=== PATIENT | male | born 1945 | race Caucasian/White ===

== ENCOUNTER 2021-06-06 10:30 | Outpatient (CLI) | payer MEDICARE, SELFPAY ==
--- NOTE | ~2021-06-06 | XR_ITS ---
XR knee RT 3V DATE: 06/06/2021 10:54 INDICATION: Right lateral knee pain for 2 months TECHNIQUE: [place] and weightbearing AP and lateral views COMPARISON: None FINDINGS: There is mild periarticular spurring of the patella. No fracture or dislocation or joint effusion. Medial and lateral compartment joint spaces are well preserved. There is superior pole patellar enthesopathy. There is severe arterial calcification of the femoral and popliteal and trifurcation arteries. 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
== END 2021-06-06 10:31 | disposition home or self-care (01) ==
LOC: ANHIMG 10:39
PROVIDERS: PCP Physician Assistant; Visit Provider Physician Assistant
DX: M17.11 Unilateral primary osteoarthritis, right knee (principal)
CPT/HCPCS: 73562

== ENCOUNTER 2021-06-18 06:36 | Outpatient (CLI) | payer MEDICARE, SELFPAY ==
--- NOTE | ~2021-06-18 | XR_ITS ---
EXAMINATION: XR lumbar spine 2-3V DATE: 06/18/2021 07:07 INDICATION: Low back pain. TECHNIQUE: 3 views of lumbar spine were obtained. COMPARISON: None. FINDINGS: There is 3 mm retrolisthesis of L2 on L3 and 3 mm anterolisthesis of L4 on L5. Vertebral evelio dy heights are normal. There is mildly decreased disc height at L2-L3 and L4-L5 and moderately decrea sed disc height at L5-S1. There is multilevel facet joint osteoarthritis, severe bilaterally at L4-L5 and L5-S1. IMPRESSION: 1. Moderate lumbar spondylosis. Reviewed, dictated and finalized at location A.
== END 2021-06-18 06:37 | disposition home or self-care (01) ==
PROVIDERS: PCP Physician Assistant; Visit Provider Physician Assistant
DX: M47.896 Other spondylosis, lumbar region (principal)
CPT/HCPCS: 72100

== ENCOUNTER 2021-06-26 08:07 | Outpatient (CLI) | payer MEDICARE, SELFPAY ==
--- NOTE | ~2021-06-26 | US_ITS ---
EXAMINATION: US art doppler w press DAVID DUNN DATE: 06/26/2021 09:45 INDICATION: Peripheral vascular disease. TECHNIQUE: Segmental pressures and plethysmographic and Doppler waveforms of the brachial and lower e xtremity arteries were obtained. COMPARISON: None. FINDINGS: Right and left brachial artery pressures of 131 mm Hg and 149 mm Hg, respectively, are concordant (no rmal difference <= 30 mmHg). The right high-thigh pressure index is 1.17 (normal > 1.2). The right ankle-brachial index (ALLEY) is 1 .19 (normal >= 0.9-1.0). The right great toe-brachial index (TBI) is 0.81 (normal >= 0.65). Arterial Doppler waveforms are biphasic from common femoral artery to the ankle. The left high-thigh pressure index is 1.13. The left ALLEY is 1.19. The left TBI is 0.70. Arterial Dopp ler waveforms are biphasic from common femoral artery to the ankle. IMPRESSION: 1. No significant arterial occlusive disease. Reviewed, dictated and finalized at location A.
== END 2021-06-26 08:08 | disposition home or self-care (01) ==
PROVIDERS: PCP Physician Assistant; Visit Provider Physician Assistant
DX: I73.9 Peripheral vascular disease, unspecified (principal)
CPT/HCPCS: 93923

== ENCOUNTER 2024-08-29 08:16 | Emergency (ER) | payer MEDICARE, SELFPAY ==
--- NOTE | ~2024-08-29 | XR_ITS ---
XR knee RT min 4V Ordering provider: Tanya Quiñonez PA-C History: . knee pain/swelling . Comparison: June 06, 2021 FINDINGS: BONES: No acute fracture or dislocation. JOINT SPACES: Slight narrowing of the lateral compartment.. Marginal osteophytes in the patella. SOFT TISSUES: Atherosclerotic changes. Minimal fluid in the suprapatellar bursa IMPRESSION: No acute osseous abnormality right knee. Mild osteoarthritic changes Reviewed, dictated and finalized at location A.
--- OUTSIDE RECORDS SUMMARY | 2024-08-29 08:24 | XMS_ITS | Data Portability ---
[facility], [email or web address] Address [address] [place] [address] Care Team Providers Care Car Packer Name Role Phone RENETTA APODACA Primary Care Provider Assessment Encounter Date Assessment Date Assessment LastModified by Organization Details LastModified Time 10/30/2019 10/30/2019 Patient with darío e recent right flank pain. A few days ago it resolved. We will just watch. He received an injection for his hand which has helped greatly. Laboratory is reviewed. Lipids glucose slightly high. Counseled on diet. No other major changes or findings. Medications and chart reviewed. ///Documentation is focused on what has changed since previous visits or on pertinent items that have not changed. Previous information is reviewed and updated. No major changes in ROS or PE otherwise. (CMS update 2019). This was created with voice recognition software. The [employer] speech recognition engine boasts accuracy up to 99%. Therefore, 1 out of 100 words can be expected to be erroneous. Human editors are not made available at this healthcare institution. If you spot a routine substitution or missed registration error that warrants correction, please contact this office. A reasonable attempt was made to correct any misrepresented words, phrases, statements or numbers. ///////////////// ///////////////// ///////////////// ////// Follow-up 6 months Virtual instructions Not available 10/30/2019 16:16:51 05/08/2020 05/08/2020 Here for follow-up. First of all lab is reviewed. Few points elevated of cholesterol triglycerides and glucose. Having no clinical symptoms of diabetes. At times will have some hesitancy at night but wishes no treatment for this right now. Also has some reflux and wishes to try some ipni-tws-xaveivq medication. ///Documentation is focused on what has changed since previous visits or on pertinent items that have not changed. Previous information is reviewed and updated and ordered closed. No major changes in ROS or PE otherwise. ([facility] update 2019). This was created with voice recognition software. The [employer] speech recognition engine boasts accuracy up to 99%. Therefore, 1 out of 100 words can be expected to be erroneous. Human editors are not made available at this healthcare institution. If you spot a routine substitution or missed registration error that warrants correction, please contact this office. A reasonable attempt was made to correct any misrepresented words, phrases, statements or numbers. Abnormals that are created by the electronic medical record robot are addressed. ///////////////// ///////////////// ///////////////// ////// Whnw-hvi-uggpzur famotidine for reflux 6 months: CBC metabolic lipids TSH vitamin D B12 CLOSE ALL previous laboratory and imaging studies. Follow-up after laboratory Not available 05/08/2020 17:09:45 12/11/2020 12/11/2020 Lots of things t o address today. Has some paresthesias in the right shoulder usually happens with position or time of day. No findings on exam. Laboratories reviewed in detail. Discussed hyperglycemia and diabetes. Lipids are borderline. Tolerating statin. Hypertension borderline. No symptoms of this. No edema or JVD. patient ordered to have at least a yearly eye exam. Diet and exercise have been recommended and discussed. ADA website recommended. Chart reviewed. Patient also ordered to check feet several times a week. Patient informed that periodic lab including A1c's will be necessary. Patient denies any renal changes. Glucose logs discussed. Foot exam negative. Internal glucose survey forABFM // __TIME for this visit took greater than 32 minutes. Chart was reviewed prior to seeing patient. Medication management took place. Previous lab available was reviewed. Time was taken to discuss lipids, types of cholesterol, ratios etc. Discussed the actions of exercise diet medications. We reviewed the types of monitoring of various medications. We have talked about their associations with other deadly diseases such as heart disease hypertension diabetes vascular problems, obesity etc. Hypertension is discussed. Goal guidelines are 130/80 and below. Medications and history discussed. Blood pressure will change throughout the day based on patient's activities. Risk factors are discussed. What the numbers mean has been discussed also. Patient is told that the higher the blood pressure levels the more the risk for other health problems such as heart disease heart attack and stroke along with kidney disease. Lifestyle changes such as exercise smoking cessation healthy diet healthy weight and managing stress are reviewed. Learning home blood pressure cuff use is encouraged. ///Documentation is focused on what has changed since previous visits or on pertinent items that have not changed. Previous information is reviewed and updated and ordered closed. No major changes in ROS or PE otherwise. ([facility] update 2019). This was created with voice recognition software. The [employer] speech recognition engine boasts accuracy up to 99%. Therefore, 1 out of 100 words can be expected to be erroneous. Human editors are not made available at this healthcare institution. If you spot a routine substitution or missed registration error that warrants correction, please contact this office. A reasonable attempt was made to correct any misrepresented words, phrases, statements or numbers. All dx listed in note discussed with patient. Abnormals that are created by the electronic medical record robot are addressed. ///////////////// ///////////////// ///////////////// ////// 6 months: CBC metabolic lipids TSH vitamin D B12 urinalysis PSA Follow-up after laboratory Add fish oil 2000 mg once a day Low-carb diet Not available 12/11/2020 10:21:01 01/08/2021 01/08/2021 Wellness visit. Also been having trouble for several weeks with the right knee with swelling and pain with flexion and weightbearing especially coming up from a squat. Patient does not have a living well. He does wear hearing aids. Rest of wellness interview was negative. Right knee is tender. Cannot come up from a squat. Motor pulses sensation seem intact. ///Documentation is focused on what has changed since previous visits or on pertinent items that have not changed. Previous information is reviewed and updated and ordered closed. No major changes in ROS or PE otherwise. (CMS update 2019). This was created with voice recognition software. The [employer] speech recognition engine boasts accuracy up to 99%. Therefore, 1 out of 100 words can be expected to be erroneous. Human editors are not made available at this healthcare institution. If you spot a routine substitution or missed registration error that warrants correction, please contact this office. A reasonable attempt was made to correct any misrepresented words, phrases, statements or numbers. All dx listed in note discussed with patient. Abnormals that are created by the electronic medical record robot are addressed. ///////////////// ///////////////// ///////////////// ////// Should have labs scheduled for June. See last note X-ray right knee Follow-up 2 or 3 weeks Make sure to try Aleve or Advil with food for the knee Not available 01/12/2021 13:21:39 Plan of Treatment Reminders Order Date Submit Date Provider Last Modified By Organization Details Last Modified Time Details Appointments None recorded. Lab unlisted lab - shh - TSH W reflex FT4 [address] [facility] (Lab), [address] [place] [address], [address], 03:18:25 lipid panel, serum [address] [facility] (Lab), [address] [place] [address] [place], [address], 03:18:25 CBC w/ auto diff [address] [facility] (Lab), [address] [place] [address] [place], [address], 03:18:24 CMP, serum or plasma [address] [facility] (Lab), [address], [place], [address], 03:18:24 urinalysis , complete [address] [facility] (Lab), [address], [place], [address], 03:18:26 PSA, serum or plasma [address] [facility] (Lab), [address], [place], [address], 03:18:25 unlisted lab - shh - vitamin B12 [address] [facility] (Lab), [address], [place], [address], 03:18:25 vitamin D, 25-hydroxy , total, serum [address] [facility] (Lab), [address], [place], [address], 03:18:25 unlisted lab - shh - vitamin B12 [address] [facility] (Lab), [address], [place], [address], 10:26:39 CBC w/ auto diff [address] [facility] (Lab), [address], [place], [address], 09:42:19 CMP, serum or plasma [address] [facility] (Lab), [address], [place], [address], 1 09:52:29 vitamin D, 25-hydroxy , total, serum [address] [facility] (Lab), [address], [place], [address], 1 10:12:53 unlisted lab - shh - TSH W reflex FT4 [address] [facility] (Lab), [address], [place], [address], 1 10:26:40 lipid panel, serum [address] [facility] (Lab), [address], [place], [address], 09:52:31 Referral None recorded. Procedures None recorded. Surgeries None recorded. Imaging XR, knee, 3 view 2020 021 [facility] ([facility]), [address], [place], [address], 2 15:51:12 XR, wrist 2019 020 [email or web address] [facility], [place], [address], 0 07:33:14 Medication Orders Voltaren 1 % topical gel 2019 020 [facility], [address], [address], [id number], 1 09:53:37 Patient TargetsNo targets recorded. 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 PLAN: 1. Today we will inject the right thumb, also issued a CMC joint brace today. The CMC joint brace is medically necessary to treat conservatively his CMC joint arthritis and the patient will benefit from this brace. 2. I also recommend he continue use of heat. 3. I would also recommend the use of Voltaren gel on his thumb and his wrist as needed, but he can use it up to four times a day. 4. Lets have the patient follow up in three months to see how he is doing. We can repeat x-rays, repeat injection of the thumb or he may follow up sooner if the wrist starts becoming more painful. I did recommend a cock-up wrist brace for the wrist if flare-ups. [email or web address] Not available 05/23/2019 15:04:22 05/08/2020 [id number] Kaex-qkt-[id number] famotidine for reflux 6 months: CBC metabolic lipids TSH vitamin D B12 CLOSE ALL previous laboratory and imaging studies. Follow-up after laboratory Not available 05/08/2020 17:09:48 12/11/2020 [id number] 6 months: CBC metabolic lipids TSH vitamin D B12 urinalysis PSA Follow-up after laboratory Add fish oil 2000 mg once a day Low-carb diet zgreen Not available 12/11/2020 10:17:53 01/08/2021 [id number] A healthy lifestyle: care instructions Not available 01/08/2021 10:18:49 Should have labs scheduled for June. See last note X-ray right knee Follow-up 2 or 3 weeks Make sure to try Aleve or Advil with food for the knee z Not available 01/08/2021 10:23:32 Reason for Referral None Reported. Results Created Date Observation Date Name Description Value Unit Range Abnormal Flag Note LastModifiedBy Organization Detail LastModifiedTime 10/26/1910/26/2019 CMP, serum or plasm a glucose lvl 117 mg/dL 70-99 high Fasti ng Gluco se Inter preta tions Jeri l 70 - 99 Impai red Fasti ng Gluco se 100 - 125 Abnor mal >=126 Not Available [facility] (Lab) [address], [place], [address], 10/26/2019 09:44:35 10/26/19 20 10/26/2019 CMP, serum or plasm a BUN 16 mg/dL 8-26 normal Not Available [facility] (Lab) [facility], [address], 10/26/2019 09:44:35 10/26/19 20 10/26/2019 CMP, serum or plasm a creatinine lvl 0.99 mg/dL 0.72-1 .25 normal Not Available [facility] (Lab) [facility] [address] [place] [address], [address], 10/26/2019 09:44:35 10/26/19 20 10/26/2019 CMP, serum or plasm a calcium lvl 8.9 mg/dL 8.4-10 .8 normal Not Available [facility] (Lab) [facility] [address] [place] [address], [address], 10/26/2019 09:44:35 10/26/1910/26/2019 CMP, serum or plasm a sodium lvl 137 mmol/ L 136-14 5 normal Not Available [facility] (Lab) [facility] [address] [place] [address], [address], 10/26/2019 09:44:35 10/26/1910/26/2019 CMP, serum or plasm a potassium lvl 4.4 mmol/ L 3.5-5. 1 normal Not Available [facility] (Lab) [facility] [address] [place] [address], [address], 10/26/2019 09:44:35 10/26/19 20 10/26/2019 CMP, serum or plasm a chloride 106 mmol/ L 98-107 normal Not Available [facility] (Lab) [facility] [address] [place] [address], [address], 10/26/2019 09:44:35 10/26/1910/26/2019 CMP, serum or plasm a CO2 24 mmol/ L 20-30 normal Not Available [facility] (Lab) [facility] [address] [place] [address], [address], 10/26/2019 09:44:35 10/26/19 20 10/26/2019 CMP, serum or plasm a agap 7.0 mmol/ L Not Available [facility] (Lab) [facility] [address] [place] [address], [address], 10/26/2019 09:44:35 10/26/19 20 10/26/2019 CMP, serum or plasm a alk phos 75 intl_ units /L 40-150 normal Not Available [facility] (Lab) [facility] [address] [place] [address], [address], 10/26/2019 09:44:35 10/26/1910/26/2019 CMP, serum or plasm a bili total 0.6 mg/dL 0.2-1. 2 normal Not Available [facility] (Lab) [address] [place] [address], [address], 10/26/2019 09:44:35 10/26/1910/26/2019 CMP, serum or plasm a albumin lvl 3.6 gm/dL 3.4-4. 8 normal Not Available [facility] (Lab) [address] [place] [address], [address], 10/26/2019 09:44:35 10/26/1910/26/2019 CMP, serum or plasm a total protein 7.0 gm/dL 6.4-8. 3 normal Not Available [facility] (Lab) [address] [place] [address], [address], 10/26/2019 09:44:35 10/26/1910/26/2019 CMP, serum or plasm a ALT 44 intl_ units /L 11-55 normal Not Available [facility] (Lab) [address] [place] [address], [address], 10/26/2019 09:44:35 10/26/19 20 10/26/2019 CMP, serum or plasm a AST 26 intl_ units /L 5-34 normal Not Available [facility] (Lab) [address] [place], [address], 10/26/2019 09:44:35 10/26/19 20 10/26/2019 CMP, serum or plasm a BUN/creat ratio 16 7-20 normal Not Available [facility] (Lab) [address] [place], [address], 10/26/2019 09:44:35 10/26/19 20 10/26/2019 CMP, serum or plasm a osmolality 276 mOsm/ kg 275-30 0 normal Not Available [facility] (Lab) [address] [place] [address], [address], 10/26/2019 09:44:35 10/26/19 20 10/26/2019 CMP, serum or plasm a Ag ratio 1.1 1.1-1. 8 normal Not Available [facility] (Lab) [address] [place] [address], [place], [address], 10/26/2019 09:44:35 10/26/19 20 10/26/2019 GFR, estim ated (eGFR ), serum eGFR non-aa >60 mL/mi n/1.7 3m2 Not Available [facility] (Lab) [address] [facility], [place], [address], 10/26/2019 09:44:38 10/26/19 20 10/26/2019 GFR, estim ated (eGFR ), serum eGFR aa >60 mL/mi n/1.7 3m2 Stage s of Renal Failu re Stage I >90 Stage II 60-89 Stage III 30-59 Stage IV 15-29 Stage V <15 Stage Va- ESRD/ Dialy sis The stagi ng syste m for Kidne y Disea se canno t be appli ed for Stage I or Stage II. This calcu latio n for GFR has only been valid ated for GFR 's <60. This GFR calcu latio n is not adjus lobo for extre me body surfa ce area. Nor has it been valid ated for child will less than 18 years , pregn ant women , or ethni c group s other than Tahmina tran and Afric nas Roldan can. Not Available [facility] (Lab) [facility] [place] [address], [address], 10/26/2019 09:44:38 10/26/1910/26/2019 lipid panel , serum chol 187 mg/dL 7-200 normal April stero l >18yo Virgilio able <200 mg/dL Borde rline High 200-2 39 mg/dL High >=240 mg/dL April stero l <19yo Virgilio able <170 mg/dL Borde rline High 170-1 99 mg/dL High >=200 mg/dL Not Available [facility] (Lab) [facility] [address] [place] [address], [address], 10/26/2019 10:00:55 10/26/19 20 10/26/2019 lipid panel , serum HDL-C 39 mg/dL Major risk facto r for heart disea se <40 mg/dL Negat maria del rosario risk facto r for heart disea se >= 60 mg/dL Not Available [facility] (Lab) [facility] [address] [place] [address], [address], 10/26/2019 10:00:55 10/26/1910/26/2019 lipid panel , serum chol/HDL 5 Virgilio able <4.5 [place] <3.5 Not Available [facility] (Lab) [facility] [address] [place] [address], [address], 10/26/2019 10:00:55 10/26/19 20 10/26/2019 lipid panel , serum trig 213 mg/dL 7-150 high Not Available [facility] (Lab) [facility] [address] [place] [address], [address], 10/26/2019 10:00:55 10/26/1910/26/2019 lipid panel , serum LDL-C calc 105 mg/dL <=100 high Calcu lated LDL April stero l Refer ence Range s Virgilio able <130 mg/dL [place] <100 mg/dL The equat ion being used in this calcu latio n is LDL = (Chol - HDL) - (Trig / 5) Resul t added by rule GL_LD L_CAL C. Not Available [facility] (Lab) [facility] [address] [place] [address], [address], 10/26/2019 10:00:55 10/26/19 20 10/26/2019 lipid panel , serum non-HDL cholesterol 148 mg/dL Virgilio able <160 mg/dL [place] <130 mg/dL Not Available [facility] (Lab) [facility] [address] [place] [address], [address], 10/26/2019 10:00:55 10/26/1910/26/2019 lipid panel , serum VLDL cholesterol 43 mg/dL 1-40 high Not Available [facility] (Lab) [facility] [address] [place] [address], [address], 10/26/2019 10:00:55 10/26/19 20 10/26/2019 CBC w/ auto diff WBC 6.2 K/uL 4.0-11 .0 normal Not Available [facility] (Lab) [facility] [address] [place] [address], [address], 10/26/2019 10:09:50 10/26/19 20 10/26/2019 CBC w/ auto diff RBC 4.53 M/uL 4.20-5 .60 normal Not Available [facility] (Lab) [facility] [address] [place] [address], [address], 10/26/2019 10:09:50 10/26/19 20 10/26/2019 CBC w/ auto diff HGB 14.2 g/dL 13.7-1 7.0 normal Not Available [facility] (Lab) [facility] [address] [place] [address], [address], 10/26/2019 10:09:50 10/26/19 20 10/26/2019 CBC w/ auto diff HCT 42.4 % 40.0-5 0.0 normal Not Available [facility] (Lab) [facility], [place], [address], 10/26/2019 10:09:50 10/26/19 20 10/26/2019 CBC w/ auto diff MCV 93.7 fL 81.0-9 8.0 normal Not Available [facility] (Lab) [facility] [place], [address], 10/26/2019 10:09:50 10/26/19 20 10/26/2019 CBC w/ auto diff MCH 31.4 pg 27.0-3 3.0 normal Not Available [facility] (Lab) [facility] [address] [facility], [place], [address], 10/26/2019 10:09:50 10/26/19 20 10/26/2019 CBC w/ auto diff MCHC 33.5 g/dL 32.0-3 7.0 normal Not Available [facility] (Lab) [facility] [address] [place], [address], 10/26/2019 10:09:50 10/26/19 20 10/26/2019 CBC w/ auto diff RDW 13.6 % 11.5-1 4.5 normal Not Available [facility] (Lab) [facility] [address] [place], [address], 10/26/2019 10:09:50 10/26/19 20 10/26/2019 CBC w/ auto diff MPV 9.0 fL 6.0-11 .1 normal Not Available [facility] (Lab) [facility] [address] [facility], [place], [address], 10/26/2019 10:09:50 10/26/1910/26/2019 CBC w/ auto diff platelet 190 K/uL 150-40 0 normal Not Available [facility] (Lab) [facility] [place], [address], 10/26/2019 10:09:50 10/26/19 20 10/26/2019 CBC w/ auto diff instr WBC 6.2 Not Available [facility] (Lab) [facility] [address] [place] [address], [address], 10/26/2019 10:09:50 10/26/19 20 10/26/2019 diffe renti al panel , blood neutrophils 49.6 % 40.0-7 4.0 normal Not Available [facility] (Lab) [facility] [address] [place] [address], [address], 10/26/2019 10:09:53 10/26/19 20 10/26/2019 diffe renti al panel , blood lymphocytes 36.4 % 19.0-4 8.0 normal Not Available [facility] (Lab) [facility] [address] [place] [address], [address], 10/26/2019 10:09:53 10/26/19 20 10/26/2019 diffe renti al panel , blood monocytes 10.5 % 0.0-12 .0 normal Not Available [facility] (Lab) [facility] [address] [place] [address], [address], 10/26/2019 10:09:53 10/26/19 20 10/26/2019 diffe renti al panel , blood eosinophils 3.0 % 0.0-7. 0 normal Not Available [facility] (Lab) [facility] [address] [place] [address], [address], 10/26/2019 10:09:53 10/26/19 20 10/26/2019 diffe renti al panel , blood basophils 0.5 % 0.0-3. 0 normal Not Available [facility] (Lab) [facility] [address] [place] [address], [address], 10/26/2019 10:09:53 10/26/19 20 10/26/2019 diffe renti al panel , blood neutro absolute 3.10 K/uL 1.60-8 .50 normal Not Available [facility] (Lab) [facility] [address] [place] [address], [address], 10/26/2019 10:09:53 10/26/19 20 10/26/[address] panel , blood lymph absolute 2.20 K/uL 0.50-4 .80 normal Not Available [facility] (Lab) [address] [place] [address], [address], 10/26/2019 10:09:53 10/26/19 20 10/26/2019 diffe isabel al panel , blood mono absolute 0.60 K/uL 0.00-0 .80 normal Not Available [facility] (Lab) [address] [place] [address], [address], 10/26/2019 10:09:53 10/26/19 20 10/26/[address] panel , blood eos absolute 0.20 K/uL 0.00-0 .70 normal Not Available [facility] (Lab) [facility] [address] [place] [address], [address], 10/26/2019 10:09:53 10/26/19 20 10/26/[address] panel , blood baso absolute 0.00 K/uL 0.00-0 .10 normal Not Available [facility] (Lab) [facility] [address] [place] [address], [address], 10/26/2019 10:09:53 10/26/19 20 10/26/2019 shh - vitam in B12 vitamin B12 lvl >2000 pg/mL 213-81 6 high Not Available [facility] (Lab) [facility] [address] [place] [address], [address], 10/26/2019 10:09:58 10/26/19 20 10/26/2019 shh - TSH W refle x FT4 TSH 3.908 mciu/ mL 0.350- 4.940 normal Not Available [facility] (Lab) [facility] [address] [place] [address], [address], 10/26/2019 10:09:59 10/26/19 20 10/26/2019 vitam in D, 25-hy droxy , total , serum vitamin D 25 oh 35.3 NG/mL Vitam in D Total Inter preta tive Data Defic iency <20.0 ng/mL Insuf ficie ncy 20.0- 29.9 ng/mL Suffi cienc y 30.0- 100.0 ng/mL Toxic ity >100. 0 ng/mL Not Available [facility] (Lab) [facility] [address], [address], 10/26/2019 10:12:17 10/26/19 20 10/26/2019 PSA, serum or plasm a PSA screen 1.35 NG/mL 0.10-3 .99 normal Not Available [facility] (Lab) [facility] [address] [place] [address], [place], [address], 10/26/2019 10:12:18 04/29/19 21 04/29/2020 CBC w/ auto diff WBC 6.9 K/uL 4.0-11 .0 normal Not Available [facility] (Lab) [facility] [address] [place] [address], [address], 04/29/2020 09:48:43 04/29/19 21 04/29/2020 CBC w/ auto diff RBC 4.50 M/uL 4.20-5 .60 normal Not Available [facility] (Lab) [facility] N [address] [place] [address], [address], 04/29/2020 09:48:43 04/29/19 21 04/29/2020 CBC w/ auto diff HGB 14.1 g/dL 13.7-1 7.0 normal Not Available [facility] (Lab) [facility] [address] [place] [address], [address], 04/29/2020 09:48:43 04/29/19 21 04/29/2020 CBC w/ auto diff HCT 41.3 % 40.0-5 0.0 normal Not Available [facility] (Lab) [address], [place], [address], 04/29/2020 09:48:43 04/29/19 21 04/29/2020 CBC w/ auto diff MCV 91.8 fL 81.0-9 8.0 normal Not Available [facility] (Lab) [facility], [place], [address], 04/29/2020 09:48:43 04/29/19 21 04/29/2020 CBC w/ auto diff MCH 31.4 pg 27.0-3 3.0 normal Not Available [facility] (Lab) [facility], [place], [address], 04/29/2020 09:48:43 04/29/19 21 04/29/2020 CBC w/ auto diff MCHC 34.2 g/dL 32.0-3 7.0 normal Not Available [facility] (Lab) [facility], [place], [address], 04/29/2020 09:48:43 04/29/19 21 04/29/2020 CBC w/ auto diff RDW 13.9 % 11.5-1 4.5 normal Not Available [facility] (Lab) [facility] [address], [place], [address], 04/29/2020 09:48:43 04/29/19 21 04/29/2020 CBC w/ auto diff MPV 8.5 fL 6.0-11 .1 normal Not Available [facility] (Lab) [facility], [place], [address], 04/29/2020 09:48:43 04/29/19 21 04/29/2020 CBC w/ auto diff platelet 208 K/uL 150-40 0 normal Not Available [facility] (Lab) [facility] [address], [place], [address], 04/29/2020 09:48:43 04/29/19 21 04/29/2020 CBC w/ auto diff instr WBC 6.9 Not Available [facility] (Lab) [facility] [address] [place] [address], [address], 04/29/2020 09:48:43 04/29/19 21 04/29/2020 diffe renti al panel , blood neutrophils 58.3 % 40.0-7 4.0 normal Not Available [facility] (Lab) [facility] [address], [place], [address], 04/29/2020 09:48:44 04/29/19 21 04/29/2020 diffe renti al panel , blood lymphocytes 30.0 % 19.0-4 8.0 normal Not Available [facility] (Lab) [facility] [address] [place] [address], [address], 04/29/2020 09:48:44 04/29/19 21 04/29/2020 diffe renti al panel , blood monocytes 8.7 % 0.0-12 .0 normal Not Available [facility] (Lab) [facility] [address] [place] [address], [address], 04/29/2020 09:48:44 04/29/19 21 04/29/2020 diffe renti al panel , blood eosinophils 2.5 % 0.0-7. 0 normal Not Available [facility] (Lab) [facility] [address] [place] [address], [address], 04/29/2020 09:48:44 04/29/19 21 04/29/2020 diffe renti al panel , blood basophils 0.5 % 0.0-3. 0 normal Not Available [facility] (Lab) [facility] [address] [place] [address], [address], 04/29/2020 09:48:44 04/29/19 21 04/29/2020 diffe renti al panel , blood neutro absolute 4.00 K/uL 1.60-8 .50 normal Not Available [facility] (Lab) [facility] [address] [place] [address], [address], 04/29/2020 09:48:44 04/29/19 21 04/29/[address] panel , blood lymph absolute 2.10 K/uL 0.50-4 .80 normal Not Available [facility] (Lab) [facility] [address] [place] [address], [address], 04/29/2020 09:48:44 04/29/19 21 04/29/2020 diffe isabel al panel , blood mono absolute 0.60 K/uL 0.00-0 .80 normal Not Available [facility] (Lab) [facility] [address] [place] [address], [address], 04/29/2020 09:48:44 04/29/19 21 04/29/[address] panel , blood eos absolute 0.20 K/uL 0.00-0 .70 normal Not Available [facility] (Lab) [address] [place] [address], [address], 04/29/2020 09:48:44 04/29/19 21 04/29/[address] panel , blood baso absolute 0.00 K/uL 0.00-0 .10 normal Not Available [facility] (Lab) [address] [place] [address], [address], 04/29/2020 09:48:44 04/29/19 21 04/29/2020 CMP, serum or plasm a glucose lvl 118 mg/dL 70-99 high Fasti ng Gluco se Inter preta tions Jeri l 70 - 99 Impai red Fasti ng Gluco se 100 - 125 Abnor mal >=126 Not Available [facility] (Lab) [facility] [address] [place] [address], [address], 04/29/2020 09:56:22 04/29/19 21 04/29/2020 CMP, serum or plasm a BUN 18 mg/dL 8-26 normal Not Available [facility] (Lab) [facility] [address], [address], 04/29/2020 09:56:22 04/29/19 21 04/29/2020 CMP, serum or plasm a creatinine lvl 1.04 mg/dL 0.72-1 .25 normal Not Available [facility] (Lab) [facility] [address] [place] [address], [address], 04/29/2020 09:56:22 04/29/19 21 04/29/2020 CMP, serum or plasm a calcium lvl 8.9 mg/dL 8.4-10 .8 normal Not Available [facility] (Lab) [facility] [address] [place] [address], [address], 04/29/2020 09:56:22 04/29/19 21 04/29/2020 CMP, serum or plasm a sodium lvl 139 mmol/ L 136-14 5 normal Not Available [facility] (Lab) [facility] [address] [place] [address], [address], 04/29/2020 09:56:22 04/29/19 21 04/29/2020 CMP, serum or plasm a potassium lvl 4.4 mmol/ L 3.5-5. 1 normal Not Available [facility] (Lab) [facility] [address] [place] [address], [address], 04/29/2020 09:56:22 04/29/19 21 04/29/2020 CMP, serum or plasm a chloride 106 mmol/ L 98-107 normal Not Available [facility] (Lab) [facility] [address] [place] [address], [address], 04/29/2020 09:56:22 04/29/19 21 04/29/2020 CMP, serum or plasm a CO2 25 mmol/ L 20-30 normal Not Available [facility] (Lab) [facility] [address], [address], 04/29/2020 09:56:22 04/29/19 21 04/29/2020 CMP, serum or plasm a agap 8.0 mmol/ L Not Available [facility] (Lab) [facility] [address] [place], [address], 04/29/2020 09:56:22 04/29/19 21 04/29/2020 CMP, serum or plasm a alk phos 74 intl_ units /L 40-150 normal Not Available [facility] (Lab) [facility] [address] [place], [address], 04/29/2020 09:56:22 04/29/19 21 04/29/2020 CMP, serum or plasm a bili total 0.5 mg/dL 0.2-1. 2 normal Not Available [facility] (Lab) [facility] [address] [place], [address], 04/29/2020 09:56:22 04/29/19 21 04/29/2020 CMP, serum or plasm a albumin lvl 3.7 gm/dL 3.4-4. 8 normal Not Available [facility] (Lab) [facility] [address], [address], 04/29/2020 09:56:22 04/29/19 21 04/29/2020 CMP, serum or plasm a total protein 7.1 gm/dL 6.4-8. 3 normal Not Available [facility] (Lab) [facility] [address] [place], [address], 04/29/2020 09:56:22 04/29/19 21 04/29/2020 CMP, serum or plasm a ALT 56 intl_ units /L 11-55 high Not Available [facility] (Lab) [facility] [address] [place], [address], 04/29/2020 09:56:22 04/29/19 21 04/29/2020 CMP, serum or plasm a AST 30 intl_ units /L 5-34 normal Not Available [facility] (Lab) [address] [place], [address], 04/29/2020 09:56:22 04/29/19 21 04/29/2020 CMP, serum or plasm a BUN/creat ratio 17 7-20 normal Not Available [facility] (Lab) [facility] [facility], [place], [address], 04/29/2020 09:56:22 04/29/19 21 04/29/2020 CMP, serum or plasm a osmolality 281 mOsm/ kg 275-30 0 normal Not Available [facility] (Lab) [facility] [address], [address], 04/29/2020 09:56:22 04/29/19 21 04/29/2020 CMP, serum or plasm a Ag ratio 1.1 1.1-1. 8 normal Not Available [facility] (Lab) [facility] [address] [place] [address], [address], 04/29/2020 09:56:22 04/29/1904/29/2020 lipid panel , serum chol 186 mg/dL 7-200 normal April stero l >18yo Virgilio able <200 mg/dL Borde rline High 200-2 39 mg/dL High >=240 mg/dL April stero l <19yo Virgilio able <170 mg/dL Borde rline High 170-1 99 mg/dL High >=200 mg/dL Not Available [facility] (Lab) [facility] [address] [place] [address], [address], 04/29/2020 09:56:24 04/29/1904/29/2020 lipid panel , serum HDL-C 48 mg/dL Major risk facto r for heart disea se <40 mg/dL Negat maria del rosario risk facto r for heart disea se >= 60 mg/dL Not Available [facility] (Lab) [address] [place], [address], 04/29/2020 09:56:24 04/29/19 21 04/29/2020 lipid panel , serum chol/HDL 4 Virgilio able <4.5 [place] <3.5 Not Available [facility] (Lab) [address], [address], 04/29/2020 09:56:24 04/29/19 21 04/29/2020 lipid panel , serum trig 161 mg/dL 7-150 high Not Available [facility] (Lab) [address] [place], [address], 04/29/2020 09:56:24 04/29/19 21 04/29/2020 lipid panel , serum LDL-C calc 106 mg/dL <=100 high The equat ion being used in this calcu latio n is LDL = (Chol - HDL) - (Trig / 5) Resul t added by rule GL_LD L_CAL C. Calcu lated LDL April stero l Refer ence Range s Virgilio able <130 mg/dL [place] <100 mg/dL Not Available [facility] (Lab) [address], [place], [address], 04/29/2020 09:56:24 04/29/1904/29/2020 lipid panel , serum non-HDL cholesterol 138 mg/dL Virgilio able <160 mg/dL [place] <130 mg/dL Not Available [facility] (Lab) [address] [facility], [place], [address], 04/29/2020 09:56:24 04/29/1904/29/2020 lipid panel , serum VLDL cholesterol 32 mg/dL 1-40 normal Not Available [facility] (Lab) [address] [facility], [place], [address], 04/29/2020 09:56:24 04/29/19 21 04/29/2020 GFR, estim ated (eGFR ), serum eGFR non-aa >60 mL/mi n/1.7 3m2 Not Available [facility] (Lab) [address] [place] [address], [address], 04/29/2020 09:56:28 04/29/19 21 04/29/2020 GFR, estim ated (eGFR ), serum eGFR aa >60 mL/mi n/1.7 3m2 Stage s of Renal Failu re Stage I >90 Stage II 60-89 Stage III 30-59 Stage IV 15-29 Stage V <15 Stage Va- ESRD/ Dialy sis The stagi ng syste m for Kidne y Disea se canno t be appli ed for Stage I or Stage II. This calcu latio n for GFR has only been valid ated for GFR 's <60. This GFR calcu latio n is not adjus lobo for extre me body surfa ce area. Nor has it been valid ated for child will less than 18 years , pregn ant women , or ethni c group s other than Tahmina tran and Afric nas Ameri can. Not Available [facility] (Lab) [address] [place] [address], [place], [address], 04/29/2020 09:56:28 04/29/19 21 04/29/2020 vitam in D, 25-hy droxy , total , serum vitamin D 25 oh 32.9 NG/mL Vitam in D Total Inter preta tive Data Defic iency <20.0 ng/mL Insuf ficie ncy 20.0- 29.9 ng/mL Suffi cienc y 30.0- 100.0 ng/mL Toxic ity >100. 0 ng/mL Not Available [facility] (Lab) [address] [place] [address], [place], [address], 04/29/2020 10:11:41 04/29/1904/29/2020 PSA, serum or plasm a PSA screen 1.51 NG/mL 0.10-3 .99 normal Not Available [facility] (Lab) [address], [place], [address], 04/29/2020 10:11:42 04/29/19 21 04/29/2020 shh - vitam in B12 vitamin B12 lvl 666 pg/mL 213-81 6 normal Not Available [facility] (Lab) [facility] [place], [address], 04/29/2020 10:19:07 04/29/19 21 04/29/2020 shh - TSH W refle x FT4 TSH 4.608 mciu/ mL 0.350- 4.940 normal Not Available [facility] (Lab) [facility] [address] [place], [address], 04/29/2020 10:19:09 12/11/19 21 12/10/2020 CBCD WBC 6.4 K/uL 4.0-11 .0 normal Not Available [facility] (Lab) [facility] [address] [place], [address], 12/10/2020 09:42:19 12/11/19 21 12/10/2020 CBCD RBC 4.64 M/uL 4.20-5 .60 normal Not Available [facility] (Lab) [facility] [address] [place], [address], 12/10/2020 09:42:19 12/11/19 21 12/10/2020 CBCD HGB 14.6 g/dL 13.7-1 7.0 normal Not Available [facility] (Lab) [facility] [address] [place], [address], 12/10/2020 09:42:19 12/11/19 21 12/10/2020 CBCD HCT 43.0 % 40.0-5 0.0 normal Not Available [facility] (Lab) [facility] [address] [place], [address], 12/10/2020 09:42:19 12/11/19 21 12/10/2020 CBCD MCV 92.6 fL 81.0-9 8.0 normal Not Available [facility] (Lab) [address], [place], [address], 12/10/2020 09:42:19 12/11/19 21 12/10/2020 CBCD MCH 31.6 pg 27.0-3 3.0 normal Not Available [facility] (Lab) [facility], [place], [address], 12/10/2020 09:42:19 12/11/19 21 12/10/2020 CBCD MCHC 34.1 g/dL 32.0-3 7.0 normal Not Available [facility] (Lab) [facility], [place], [address], 12/10/2020 09:42:19 12/11/1912/10/2020 CBCD RDW 13.2 % 11.5-1 4.5 normal Not Available [facility] (Lab) [facility] [address], [place], [address], 12/10/2020 09:42:19 12/11/1912/10/2020 CBCD MPV 9.0 fL 6.0-11 .1 normal Not Available [facility] (Lab) [facility], [place], [address], 12/10/2020 09:42:19 12/11/1912/10/2020 CBCD platelet 183 K/uL 150-40 0 normal Not Available [facility] (Lab) [facility], [place], [address], 12/10/2020 09:42:19 12/11/1912/10/2020 CBCD instr WBC 6.4 Not Availa ble [facility] (Lab) [facility], [place], [address], 12/10/2020 09:42:19 12/11/19 21 12/10/2020 ADFF neutrophils 56.8 % 40.0-7 4.0 normal Not Available [facility] (Lab) [facility] [address] [place] [address], [address], 12/10/2020 09:42:20 12/11/19 21 12/10/2020 ADFF lymphocytes 31.0 % 19.0-4 8.0 normal Not Available [facility] (Lab) [facility] [address] [place] [address], [place], [address], 12/10/2020 09:42:20 12/11/19 21 12/10/2020 ADFF monocytes 8.4 % 0.0-12 .0 normal Not Available [facility] (Lab) [facility] [address] [place] [address], [address], 12/10/2020 09:42:20 12/11/19 21 12/10/2020 ADFF eosinophils 3.3 % 0.0-7. 0 normal Not Available [facility] (Lab) [facility] [address] [place] [address], [address], 12/10/2020 09:42:20 12/11/19 21 12/10/2020 ADFF basophils 0.5 % 0.0-3. 0 normal Not Available [facility] (Lab) [facility] [address] [place] [address], [address], 12/10/2020 09:42:20 12/11/19 21 12/10/2020 ADFF neutro absolute 3.60 K/uL 1.60-8 .50 normal Not Available [facility] (Lab) [facility] [address] [place] [address], [address], 12/10/2020 09:42:20 12/11/19 21 12/10/2020 ADFF lymph absolute 2.00 K/uL 0.50-4 .80 normal Not Available [facility] (Lab) [facility] [address] [place] [address], [address], 12/10/2020 09:42:20 12/11/19 21 12/10/2020 ADFF mono absolute 0.50 K/uL 0.00-0 .80 normal Not Available [facility] (Lab) [address] [place], [address], 12/10/2020 09:42:20 12/11/19 21 12/10/2020 ADFF eos absolute 0.20 K/uL 0.00-0 .70 normal Not Available [facility] (Lab) [facility] [place], [address], 12/10/2020 09:42:20 12/11/19 21 12/10/2020 ADFF baso absolute 0.00 K/uL 0.00-0 .10 normal Not Available [facility] (Lab) [facility] [address] [place], [address], 12/10/2020 09:42:20 12/11/19 21 12/10/2020 CMP glucose lvl 117 mg/dL 70-99 high Fasti ng Gluco se Inter preta tions Jeri l 70 - 99 Impai red Fasti ng Gluco se 100 - 125 Abnor mal >=126 Not Available [facility] (Lab) [facility] [address] [place], [address], 12/10/2020 09:52:29 12/11/19 21 12/10/2020 CMP BUN 14 mg/dL 8-26 normal Not Available [facility] (Lab) [facility] [place], [address], 12/10/2020 09:52:29 12/11/19 21 12/10/2020 CMP creatinine lvl 0.98 mg/dL 0.72-1 .25 normal Not Available [facility] (Lab) [facility] [place], [address], 12/10/2020 09:52:29 12/11/19 21 12/10/2020 CMP calcium lvl 9.1 mg/dL 8.4-10 .8 normal Not Available [facility] (Lab) [address] [place], [address], 12/10/2020 09:52:29 12/11/19 21 12/10/2020 CMP sodium lvl 138 mmol/ L 136-14 5 normal Not Available [facility] (Lab) [address] [place], [address], 12/10/2020 09:52:29 12/11/19 21 12/10/2020 CMP potassium lvl 4.4 mmol/ L 3.5-5. 1 normal Not Available [facility] (Lab) [facility] [place], [address], 12/10/2020 09:52:29 12/11/19 21 12/10/2020 CMP chloride 106 mmol/ L 98-107 normal Not Available [facility] (Lab) [facility] [place], [address], 12/10/2020 09:52:29 12/11/19 21 12/10/2020 CMP CO2 23 mmol/ L 20-30 normal Not Available [facility] (Lab) [facility] [place], [address], 12/10/2020 09:52:29 12/11/19 21 12/10/2020 CMP agap 9.0 mmol/ L Not Available [facility] (Lab) [address] [place], [address], 12/10/2020 09:52:29 12/11/19 21 12/10/2020 CMP alk phos 68 intl_ units /L 40-150 normal Not Available [facility] (Lab) [address], [address], 12/10/2020 09:52:29 12/11/19 21 12/10/2020 CMP bili total 0.5 mg/dL 0.2-1. 2 normal Not Available [facility] (Lab) [address] [place], [address], 12/10/2020 09:52:29 12/11/19 21 12/10/2020 CMP albumin lvl 3.6 gm/dL 3.4-4. 8 normal Not Available [facility] (Lab) [address], [place], [address], 12/10/2020 09:52:29 12/11/19 21 12/10/2020 CMP total protein 7.0 gm/dL 6.4-8. 3 normal Not Available [facility] (Lab) [address], [place], [address], 12/10/2020 09:52:29 12/11/19 21 12/10/2020 CMP ALT 67 intl_ units /L 11-55 high Not Available [facility] (Lab) [address], [place], [address], 12/10/2020 09:52:29 12/11/19 21 12/10/2020 CMP AST 33 intl_ units /L 5-34 normal Not Available [facility] (Lab) [address], [place], [address], 12/10/2020 09:52:29 12/11/19 21 12/10/2020 CMP BUN/creat ratio 14 7-20 normal Not Available [facility] (Lab) [address], [place], [address], 12/10/2020 09:52:29 12/11/19 21 12/10/2020 CMP osmolality 277 mOsm/ kg 275-30 0 normal Not Available [facility] (Lab) [address] [place] [address] [place], [address], 12/10/2020 09:52:29 12/11/19 21 12/10/2020 CMP Ag ratio 1.1 1.1-1. 8 normal Not Available [facility] (Lab) [address] [place] [address], [address], 12/10/2020 09:52:29 12/11/19 21 12/10/2020 LIPID PANEL chol 189 mg/dL 7-200 normal April stero l >18yo Virgilio able <200 mg/dL Borde rline High 200-2 39 mg/dL High >=240 mg/dL April stero l <19yo Virgilio able <170 mg/dL Borde rline High 170-1 99 mg/dL High >=200 mg/dL Not Available [facility] (Lab) [facility] [place] [address], [place], [address], 12/10/2020 09:52:31 12/11/19 21 12/10/2020 LIPID PANEL HDL-C 45 mg/dL Major risk facto r for heart disea se <40 mg/dL Negat maria del rosario risk facto r for heart disea se >= 60 mg/dL Not Available [facility] (Lab) [facility] [place] [address], [address], 12/10/2020 09:52:31 12/11/19 21 12/10/2020 LIPID PANEL chol/HDL 4 Virgilio able <4.5 [place] <3.5 Not Available [facility] (Lab) [facility] [address] [place] [address], [address], 12/10/2020 09:52:31 12/11/19 21 12/10/2020 LIPID PANEL trig 141 mg/dL 7-150 normal Not Available [facility] (Lab) [address] [place] [address], [address], 12/10/2020 09:52:31 12/11/19 21 12/10/2020 LIPID PANEL LDL-C calc 116 mg/dL <=100 high The equat ion being used in this calcu latio n is LDL = (Chol - HDL) - (Trig / 5) Resul t added by rule GL_LD L_CAL C. Calcu lated LDL April stero l Refer ence Range s Virgilio able <130 mg/dL [place] <100 mg/dL Not Available [facility] (Lab) [address], [place], [address], 12/10/2020 09:52:31 12/11/19 21 12/10/2020 LIPID PANEL non-HDL cholesterol 144 mg/dL Virgilio able <160 mg/dL [place] <130 mg/dL Not Available [facility] (Lab) [address] [facility], [place], [address], 12/10/2020 09:52:31 12/11/19 21 12/10/2020 LIPID PANEL VLDL cholesterol 28 mg/dL 1-40 normal Not Available [facility] (Lab) [address], [place], [address], 12/10/2020 09:52:31 12/11/19 21 12/10/2020 .EGFR eGFR non-aa 75 mL/mi n/1.7 3m2 Not Available [facility] (Lab) [address], [place], [address], 12/10/2020 09:52:33 12/11/19 21 12/10/2020 .EGFR eGFR aa 91 mL/mi n/1.7 3m2 Stage s of Renal Failu re Stage I >90 Stage II 60-89 Stage III 30-59 Stage IV 15-29 Stage V <15 Stage Va- ESRD/ Dialy sis The stagi ng syste m for Kidne y Disea se canno t be appli ed for Stage I or Stage II. This calcu latio n for GFR has only been valid ated for GFR 's <60. This GFR calcu latio n is not adjus lobo for extre me body surfa ce area. Nor has it been valid ated for child will less than 18 years , pregn ant women , or ethni c group s other than Cauca marc and Afric an Ameri can. Not Available [facility] (Lab) [address] [place] [address], [address], 12/10/2020 09:52:33 12/11/19 21 12/10/2020 VIT D25 OH vitamin D 25 oh 33.1 NG/mL Vitam in D Total Inter preta tive Data Defic iency <20.0 ng/mL Insuf ficie ncy 20.0- 29.9 ng/mL Suffi cienc y 30.0- 100.0 ng/mL Toxic ity >100. 0 ng/mL Not Available [facility] (Lab) [facility] [place] [address], [address], 12/10/2020 10:12:53 12/11/19 21 12/10/2020 VIT B12 vitamin B12 lvl 592 pg/mL 213-81 6 normal Not Available [facility] (Lab) [facility] [address] [place] [address], [address], 12/10/2020 10:26:38 12/11/19 21 12/10/2020 TSH WITH REFLE X FREE T4 TSH 2.305 mciu/ mL 0.350- 4.940 normal Not Available [facility] (Lab) [facility] [address] [place] [address], [place], [address], 12/10/2020 10:26:40 05/15/19 20 05/15/2019 XR, wrist , 3 or more view 1.2.84 0.1138 37.338 [id number] 3.1583 [id number] .0 Encryp lobo=sh AaTroY D8dLqb EUv6g% 2BXZwa Yqtaq0 bqfl%2 Fg9IQa 4ajBkv P9nXoQ UaueCm 3YtLRF vZlgJJ J8mAnH Ztai31 j3995F C0Kvbm DtM7%2 BkUjsk psUCUf Q%3D INTERFACE [facility] [place], [address], 05/15/2019 09:04:07 01/14/20 21 01/13/2021 XR, knee, 3 view 1.2.84 0.1138 37.228 523556 0.1635 138798 .0 Encryp lobo=sh AaTroY D8dLqb EUv6g% 2BXZwa Yqtaq0 bqfl%2 Fg9IQa 4ajBkv P9nXoQ UaueCm 3YtLRF vZlgJJ J8[facility] Ztai31 r8492D C0Kuam DtM7%2 BkUzsg rcoOUf 0%3D INTERFACE [facility] [address] [facility] [address], [place], [address], 01/13/2021 10:07:42 01/15/20 21 01/13/2021 XR, knee, 3 view EXAMIN ATION: XR Knee 3 Views Right CLINIC AL INDICA TION: Male, 75 years old. Pain in joint, knee, postop erativ e knee pain for a week, no report ed injury . COMPAR TWILA: None. FINDIN GS: Osseou s Struct ures: There is normal anatom ic alignm ent. There are no acute fractu res. There is a probab le modera te sized suprap atella r joint effusi on. No defini te loose body demons trated . Joint Spaces : Joint spaces are preser david. Bone Minera lizati on: Normal bone minera lizati on. Soft Tissue s: There are promin ent arteri al calcif icatio ns. No radiod ense foreig n body or soft tissue emphys bella. IMPRES ROBERT: 1. Nonspe cific knee joint effusi on. Electr onical ly signed by: Jose eller MD 021 11:42 PM CDT Workst ation: 109-00 82SFG Final Dictat ed by: Jose Quigley MD Dictat ed DT/TM: 2020 11:42 pm Signed by: Jose Quigley MD Signed (Elect ronic Signat ure): 2020 11:[address] ([facility]) [address], [place], [address], 07/13/2021 18:46:02 Result Notes Documentation Provider Name and Address Organization Details Recorded Time Xr, Wrist, 3 Or More View : [id number] Encrypted=ksSrNruMI2vMusO Uv6g%0DXLenOuruk5tgam%2Fg 6ILy3egQhyK2cQkBHcktRo1Cb KJMyWmjPCM2sMzBEmdi02u794 7IN1LfneWaE1%2BkUjskpsUCU fQ%3D Not Available [facility] 05/15/2019 09:04:07 Xr, Knee, 3 View : [id number] Encrypted=xiCqEvaMD1nGccR Uv6g%6QCTxaIjmlp1fehc%2Fg 9RMk0jfLimU3jVsVVkmjCw1Ma HTMgXlcHXD1cDsVFjdz17s191 7HD1LqxtErR7%2BkUzsgrcoOU f0%3D Not Available [facility] 01/13/2021 10:07:42 Xr, Knee, 3 View : EXAMINATION: XR Knee 3 Views Right CLINICAL INDICATION: Male, 75 years old. Pain in joint, knee, postoperative knee pain for a week, no reported injury. COMPARISON: None. FINDINGS: Osseous Structures: There is normal anatomic alignment. There are no acute fractures. There is a probable moderate sized suprapatellar joint effusion. No definite loose body demonstrated. Joint Spaces: Joint spaces are preserved. Bone Mineralization: Normal bone mineralization. Soft Tissues: There are prominent arterial calcifications. No radiodense foreign body or soft tissue emphysema. IMPRESSION: 1. Nonspecific knee joint effusion. 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 [address], [place], [place], [address] [place] [address] , Formerly named [facility] 6 10:21:54 Anxiety 85988003 Active 2015 MD Mariela Yung [address], [place], [address] [place] [address] , Formerly named [facility] 6 10:22:14 Screenin g for malignan t neoplasm of prostate Active 2015 MD Mariela Yung [address], [place], [address] [place] [address] , Formerly named [facility] 6 10:05:52 Dyspnea 917116403 Active 2015 MD Leonila [address], [place], [address] [place] [address] , Formerly named [facility] 6 10:04:04 Carotid artery stenosis 22529092 Active 2015 MD Mariela Yung [address] [facility] [address], [place], [address] [place] [address] , Formerly named [facility] 6 13:00:37 Vertigo 526211387 Active 2015 Renetta Apodaca MD [address], [place], [address] [place] [address] , Formerly named [facility] 6 13:00:49 Acute bronchit is 05010487 Active Ballantine Peloquin null, [facility] 7 13:58:21 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 Maria De Jesus Peloquin null, [facility] 7 13:59:43 Common cold 83586025 Active Maria De Jesus Pride null, [place] - [facility] 7 13:59:56 Impaired fasting glycemia 342946726 Active prediabe christiano stage Maria De Jesus [place], [place] [facility] 7 14:00:34 Hyperlip idemia 90374195 Active Not Available [facility] 6 04:13:42 Body mass index 25-29 - overweig ht 213925506 Active 2017 26.4 Ana Maria Rico null, [place] - [facility] 0 10:15:42 Liver enzymes level above referenc e range 816391133 Active 2017 Renetta Apodaca MD [address] [facility] [address], [place], [address] [place] [address] , Formerly named [facility] 8 12:39:40 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 MD Mariela Yung [facility] [address], [place], [address] [place] [address] , Formerly named [facility] 8 12:39:56 Hypergly cemia 11917683 Active 2017 MD Mariela Yung [facility] [address], [place], [address] [place] [address] , Formerly named [facility] 8 10:59:12 Abnormal finding on evaluati on procedur e 794123516 Active 2017 MD Mariela Yung [facility] [address], [place], [address] [place] [address] , Formerly named [facility] 8 11:26:43 Adult health examinat ion Active 2017 MD Mariela Yung [facility] [address], [place], [address] [place] [address] , Formerly named [facility] 8 17:19:52 Cataract 946605848 Active 2017 MD Mariela Yung [facility] [address], [place], [address] [place] [address] , Formerly named [facility] 8 16:56:44 Pain of bilatera l hands 24300948001 887154 Active 2018 Renetta Apodaca MD [address], [place], [address] [place] [address] , Formerly named [facility] 9 10:03:29 Vitrecto my Active 2018 Renetta Apodaca MD [address], [place], [address] [place] [address] , Formerly named [facility] 9 11:21:00 Gastroes ophageal reflux disease 749770550 Active 2018 Renetta Apodaca MD [address], [place], [address] [place] [address] , Formerly named [facility] 9 11:21:50 Strain of muscle of right shoulder 61522285500 221606 Active 2018 MD Leonila [address], [place], [address] [place] [address] , Formerly named [facility] 9 09:46:52 Lumbar radiculo monroe 400441375 Active 2018 Renetta Apodaca MD [address], [place], [address] [place] [address] , Formerly named [facility] 9 09:58:28 Paresthe merle 12013965 Active 2018 Renetta Apodaca MD [address], [place], [address] [place] [address] , Formerly named [facility] 9 09:58:39 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 9 12:00:33 Multiple actinic keratose s 862676105 Active 2018 Renetta Apodaca MD [address], [place], [address] , [facility] - [facility] 9 15:30:03 Degenera tion of lumbar interver tebral disc 78498939 Active 2018 MD [address]iela [address]ung [address], [place], [address] , [facility] - 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 0 09:36:45 Right flank pain 912743110 Active 2019 MD Leonila [address], [place], [address] , [facility] - [facility] 0 16:14:34 Benign prostati c hyperpla merle 023681350 Active 2020 MD Leonila [address], [place], [address] , [facility] - [facility] 1 17:04:56 Pain of right knee region 46491173004 4105 Active 2020 Renetta Apodaca MD [address], [place], [address] , Formerly named [facility] 1 10:16:54 Acute upper respirat ory infectio n 71030566 Active Not Available [facility] 6 04:14:37 [facility] hyperten robert 31578993 Active Not Available [facility] 6 04:15:12 Problem Notes None recorded. Procedures Surgical History Date Name Laterality Status Provider Name and Address Organization Details Recorded Time 020 ORTHO Injection [facility] Arthritis Injection completed Avila Foley PA-C [address], [place], [address], Formerly named [facility] 05/15/2019 09:22:34 020 colonoscopy completed Hannah Ferrer [facility] 04/11/2019 10:33:30 016 retinaculotomy completed Griffin Amaya-Black [facility] 05/15/2019 09:04:02 Colonoscopy completed Zakitkimber Green [facility] 04/24/2019 10:06:07 None reported completed Hannah Ferrer [facility] 01/01/2016 14:22:23 Imaging Results None recorded. Procedure Notes None recorded. Medical Equipment None Reported. Allergies No known drug allergies Medications Name Sig Start Date Stop Date Status Note LastModified by Organization Details LastModified Time amoxicillin 500 mg capsule TAKE ONE CAPSULE BY MOUTH THREE TIMES A DAY UNTIL ALL GONE 05/08 completed Not Available Not Available Not Available latanoprost 0.005 % eye drops INSTILL ONE DROP INTO THE LEFT EYE AT BEDTIME DIRECTED 12/11 completed Not Available Not Available Not Available doxycycline hyclate 100 mg capsule Take 1 capsule twice a day by oral route. 05/25 completed Not Available Not Available Not Available ibuprofen 800 mg tablet TAKE ONE TABLET BY MOUTH EVERY 6 TO 8 HOURS NEEDED 05/08 completed Not Available Not Available Not Available ofloxacin 0.3 % eye drops 12/11 completed Not Available Not Available Not Available lisinopril 20 mg tablet TAKE 1 TABLET BY MOUTH DAILY active Not Available Not Available No t Available simvastatin 40 mg tablet TAKE 1 TABLET BY MOUTH DAILY AT BEDTIME active Not Available Not Available No t Available alprazolam 0.5 mg tablet Take 1 tablet every 8 hours by oral route. 12/11 completed Not Available Not Available Not Available amoxicillin 875 mg tablet Take 1 tablet every 12 hours by oral route. 04/23 completed Not Available Not Available Not Available prednisolon e acetate 1 % eye drops,suspe nsion 12/11 completed Not Available Not Available Not Available sulfacetami de sodium 10 % eye drops INSTILL 1 DROP INTO AFFECTED EYE(S) BY OPHTHALMI C ROUTE EVERY 2-3 HOURS DURING THE DAY AND LESS FREQUENTL Y AT NIGHT 12/15 completed Not Available Not Available Not Available gemfibrozil 600 mg tablet Take 1 tablet twice a day by oral route. 12/11 completed Not Available Not Available Not Available levothyroxi ne 50 mcg tablet TAKE 1 TABLET BY MOUTH DAILY active Not Available Not Available No t Available paroxetine 20 mg tablet Take 1 tablet every day by oral route. 11/02 completed Not Available Not Available Not Available lisinopril 10 mg tablet Take 1 tablet every day by oral route for 30 days. 07/28 completed Not Available Not Available Not Available Vistaril 25 mg capsule Take 1 capsule twice a day by oral route. 11/02 completed Not Available Not Available Not Available Cheratussin AC 10 mg-100 mg/5 mL oral liquid 5ml every 6 hours as needed 10/18 completed Not Available Not Available Not Available timolol maleate 0.5 % eye drops INSTILL ONE DROP INTO THE RIGHT EYE TWICE A DAY active Not Available Not Available No t Available neomycin 3.5 mg/g-polymy levar B 10,000 unit/g-dexa meth 0.1 % eye oint APPLY A SMALL AMOUNT INTO THE LEFT EYE AT BEDTIME DIRECTED (START ONE DAY AFTER SURGERY) FOR 7 DAYS 05/08 completed Not Available Not Available Not Available Asprin Ec Low Dose 81 mg tablet,lilly yed release Take 1 tablet every day by oral route. active Not Available Not Available No t Available moxifloxaci n 0.5 % eye drops INSTILL 1 DROP INTO THE LEFT EYE THREE TIMES A DAY DIRECTED; START ONE DAY AFTER SURGERY 05/08 completed Not Available Not Available Not Available diclofenac 1 % topical gel APPLY 2 GRAMS TO THE AFFECTED AREA(S) BY TOPICAL ROUTE 4 TIMES PER DAY 12/11 completed Not Available Not Available Not Available Durezol 0.05 % eye drops APPLY 1 DROP INTO THE LEFT EYE FOUR TIMES A DAY FOR 2 WEEKS TAPER EACH WEEKS AFTER DIRECTED START ONE DAY AFTER SURGERY 05/08 completed Not Available Not Available Not Available Multi Vitamin one a day active Not Available Not Available No t Available Prolensa 0.07 % eye drops 12/11 completed Not Available Not Available Not Available omega 3-dha 500 mg-epa 100 mg-fish oil 1,000 mg capsule Take 1 capsule every day by oral route as directed. 10/27 completed Not Available Not Available Not Available Vitals Date Recorded Body height Body mass index (BMI) Body weight Heart rate Respiratory rate Body temperature Oxygen saturation Oxygen saturation in Arterial blood by Pulse oximetry Systolic blood pressure Diastolic blood pressure Provider Name and Address Organization Details Last Updated DateTime 1 185.42 cm 26.5 kg/m2 27539.0 7 g 68 /min 16 /min 97.1 [degF] 96 % 96 % 137 mm[Hg] 77 mm[Hg] Princess Fletcher [facility] 1 16:45:28 Date Recorded Body height Body mass index (BMI) Body weight Heart rate Body temperature Systolic blood pressure Diastolic blood pressure Provider Name and Address Organization Details Last Updated DateTime 0 185.42 cm 25.5 kg/m2 50332.3 3 g 60 /min 97.9 [degF] 141 mm[Hg] 77 mm[Hg] Griffin AmayaGilbert James [facility] 0 09:01:12 Date Recorded Body height Body mass index (BMI) Body weight Heart rate Respiratory rate Body temperature Oxygen saturation Oxygen saturation in Arterial blood by Pulse oximetry Systolic blood pressure Diastolic blood pressure Provider Name and Address Organization Details Last Updated DateTime 0 185.42 cm 26.5 kg/m2 04276.7 7 g 61 /min 14 /min 97.7 [degF] 96 % 96 % 133 mm[Hg] 71 mm[Hg] Hannah Carissa [facility] 0 15:36:28 Date Recorded Body height Body mass index (BMI) Body weight Heart rate Respiratory rate Body temperature Oxygen saturation Oxygen saturation in Arterial blood by Pulse oximetry Systolic blood pressure Diastolic blood pressure Systolic blood pressure Diastolic blood pressure Provider Name and Address Organization Details Last Updated DateTime 1 185.42 cm 26.3 kg/m2 52777.0 4 g 52 /min 16 /min 97.7 [degF] 96 % 96 % 148 mm[Hg] 82 mm[Hg] 145 mm[Hg] 75 mm[Hg] Ana Maria Rico [facility] 1 09:34:06 Date Recorded Body height Body mass index (BMI) Body weight Heart rate Respiratory rate Body temperature Oxygen saturation Oxygen saturation in Arterial blood by Pulse oximetry Systolic blood pressure Diastolic blood pressure Provider Name and Address Organization Details Last Updated DateTime 1 185.42 cm 25.6 kg/m2 03519.6 2 g 54 /min 16 /min 97.8 [degF] 97 % 97 % 137 mm[Hg] 77 mm[Hg] Lilliana Gerhard [facility] 1 09:51:45 Social History Question Answer Notes LastModified by Organizat ion Details LastModified Time Tobacco Smoking Status Never Smoker Ana Maria Rico [facility] 05/23/2015 10:19:55 Do You Have An Advance Directive? No Information not available 09/19/2015 Are You Blind Or Do You Have Difficulty Seeing? No [email or web address] Information not available 01/08/2021 How Much Tobacco Do You Chew? None [email or web address] Information not available 01/01/2016 Are You Deaf Or Do You Have Serious Difficulty Hearing? No [email or web address] Information not available 01/08/2021 Which Illicit Or Recreational Drugs Have You Used? Denied [email or web address] Information not available 01/08/2021 Single Or Multi-level Home/work? Multi Level Home [email or web address] Information not available 01/08/2021 What Is Your Home Situation? Both Parents [email or web address] Information not available 01/08/2021 Live Alone Or With Others? Alone [email or web address] Information not available 01/08/2021 Patients Living Environment Safe And Secure? Yes Information not available 05/23/2015 High Risk For Falls? No Information not available 05/23/2015 Readiness To Learn Accepting Information not available 05/23/2015 Barriers To Learning None Information not available 05/23/2015 Learning Preferences No Preferences Information not available 05/23/2015 Have You Had A Fever And/or Symptoms Of A Lower Respiratory Illness (cough, Difficulty Breathing, Etc)? No [email or web address] Information not available 10/30/2019 Have You Had Any Of These Symptoms: Chills ,Headache, Fatigue, Muscle Or Body Aches , Sore Throat, New Loss Of Taste Or Smell, Nausea Or Vomiting, Or Diarrhea? No Information not available 12/11/2020 Have You Had A COVID-19 Vaccine In The Last 7 Days? No Information not available 12/11/2020 Marital Status [email or web address] Informat ion not available 01/08/2021 What Was The Date Of Your Most Recent Tobacco Screening? 07/28/2018 [email or web address] Information not available 01/08/2021 Do You Use Protection During Sex? No [email or web address] Information not available 01/08/2021 What Is Your Relationship Status? [email or web address] Information not available 01/08/2021 Do You Use Your Seat Belt Or Car Seat Routinely? Yes [email or web address] Information not available 01/08/2021 Are You Sexually Active? No [email or web address] Information not available 01/08/2021 Do You Have Smoke And Carbon Monoxide Detectors In Your Home? Yes [email or web address] Information not available 01/08/2021 Are You Passively Exposed To Smoke? Yes [email or web address] Information not available 01/08/2021 General Stress Level Low [email or web address] Information not available 01/08/2021 Do You Use Sunscreen Routinely? No [email or web address] Information not available 01/08/2021 Do You Have Symptoms Associated With Zika Virus (fever, Rash, Joint Pain, Or Conjunctivitis)? No [email or web address] Information not available 01/08/2021 Have You Recently (within The Last 12 Weeks, Or During A Current ) Traveled To Or Lived In A Zika-affected Area? No [email or web address] Information not available 01/08/2021 Sex: Male Functional Status Question Answer Note LastModified by Organizat ion Details LastModified Time What is your level of alcohol consumption? None [email or web address] Information not available 09/02/2015 Are you currently employed? No [email or web address] Information not available 01/08/2021 Do you have transportation difficulties? No [email or web address] Information not available 01/08/2021 Do you have difficulty doing errands alone? No [email or web address] Information not available 01/08/2021 Are you able to care for yourself? Yes Information n ot available 04/23/2016 Do you have difficulty dressing or bathing? No [email or web address] Information not available 01/08/2021 What is your exercise level? Occasional light [email or web address] Information not available 01/08/2021 Mental Status Question Answer Note LastModified by Organization D etails LastModified Time Do you have difficulty concentrating, remembering or making decisions? No [email or web address] Information no t available 01/08/2021 Family History Relationship Description Onset Age of this Age Resolved Age Notes LastModified by Organization Details LastModified Time Maternal Grandfather Malignant neoplastic disease [email or web address] Not available 2015 11:21:51 Sister Diabetes mellitus [email or web address] Not available 2015 11:22:01 Father Heart disease [email or web address] Not available 2015 11:22:15 Medical History Condition Response cancer N vision or eye problems Y arthritis N heart disease N acid reflux/GERD N neurologic disease N lung disease N hyperthyroidism Y diabetes mellitus N musculoskeletal disease N high cholesterol Y high blood pressure Y Immunizations Vaccine Type Date Status Note Provider Nam e and Address Organization Details Recorded Time Influenza, high-dose, trivalent, PF 6 completed Not Available [facility] 04/01/2019 02:34:16 pneumococcal, unspecified formulation 8 completed KVNG Carrillo [facility] 04/24/2019 10:04:39 COVID-19, mRNA, LNP-S, PF, 100 mcg/0.5mL dose or 50 mcg/0.25mL dose 1 completed KVNG Carrillo [facility] 12/11/2020 09:34:48 COVID-19, mRNA, LNP-S, PF, 100 mcg/0.5mL dose or 50 mcg/0.25mL dose 1 completed jani kumari [facility] 12/11/2020 09:52:37 Influenza, high-dose, trivalent, PF 8 completed Not Available [facility] 04/01/2019 02:24:57 pneumococcal polysaccharide PPV23 5 completed Ana Maria kumari [facility] 09/19/2015 09:37:55 Influenza, split virus, trivalent, PF 4 completed Ana Maria kumari [facility] 09/19/2015 09:37:55 Pneumococcal conjugate PCV 13 8 completed Not Available [facility] 04/01/2019 02:58:15 Influenza, high-dose, trivalent, PF 8 completed Not Available [facility] 04/01/2019 02:48:36 Past Encounters Encounter ID Performer Location Encounter Start Date Encounter Closed Date Diagnosis/Indication Diagnosis SNOMED-CT Code Diagnosis ICD10 Code Diagnosis Note [id number] MD CASE [facility] [place] [id number] 5 02/22/2014 11:26:16 02/22/2014 13:08:19 Essential hypertension [id number] [facility] [id number] MD CASE [facility] [place] [id number] 5 03/20/2014 14:23:33 03/20/2014 15:19:34 Acute upper respiratory infection [id number] MD CASE [facility] [place] [id number] 5 04/25/2014 12:02:15 04/25/2014 12:30:37 Acute upper respiratory infection [id number] MD CASE [facility] [place] [id number] 5 09/12/2014 14:36:30 09/12/2014 15:23:17 Essential hypertension 12473113 Hyperlipidemia 94791381 [id number] Renetta Apodaca MD [facility] [place], [place] [id number] 5 05/23/2015 09:59:39 05/23/2015 11:00:46 Anxiety 05613317 F41.9 Claustrophobia 47149527 F40.853 [id number] Renetta Apodaca MD [facility] [place], [place] [id number] 5 09/19/2015 09:20:09 09/19/2015 10:14:55 Essential hypertension 97563433 I10 Hyperlipidemia 75534143 E78.5 Anxiety 41912352 F41.9 Screening for malignant neoplasm of prostate 173507462 Z12.5 [id number] Bernabe Mcgovern MD [facility] [address] [id number] 5 11/03/2015 17:49:50 11/03/2015 18:39:22 Disorder of sclera 34091340 H15.9 [id number] MD DOMINIK [facility] _[address] [place] [address] 5 12/16/2015 09:10:46 12/16/2015 10:16:30 Influenza vaccine needed 0950867042 106 Z23 Dyspnea 896478050 R06.00 [id number] Renetta Apodaca MD [facility] [address] [place], [place] [id number] 5 01/01/2016 14:09:01 01/01/2016 14:58:28 Dyspnea 236722784 R06.00 Essential hypertension 92240286 I10 [id number] Renetta Apodaca MD [facility] [address] [place], [place] [id number] 5 02/24/2016 12:12:28 02/24/2016 13:09:57 Screening for malignant neoplasm of colon 771686171 Z12.11 Vertigo 915205503 R42 Carotid ar diya stenosis 07473689 I65.29 [id number] Eric Magallanes MD [facility] [address] [id number] 5 03/18/2016 12:02:24 03/18/2016 13:14:31 Acute sinusitis 78423487 J01.90 [id number] Renetta Apodaca MD [facility] [place], [place] [id number] 5 04/23/2016 11:57:10 04/23/2016 12:34:54 Carotid artery stenosis [id number] I65.29 [id number] Behzad Hagen MD [facility]OLA40 [address] 9 05/26/2016 09:10:11 05/26/2016 10:14:44 Dizziness 584242177 R42 Paresthesia 49340028 R20 .2 [id number] Renetta Apodaca MD [facility] MP_[address] [place], [place] [id number] 5 03/16/2017 11:10:14 03/16/2017 13:07:56 Essential hypertension 37092039 I10 Hyperlipidemia 87737624 E78.5 Body mass index 25-29 - overweight 086274509 Z68.29 Hypothyroidism 99145738 E03.9 Liver enzy mes level above reference range 212794297 R74.8 [id number] Renetta Apodaca MD [facility] MP_[address] [place], [place] [address] 5 04/20/2017 09:33:10 04/20/2017 10:56:11 Active or passive immunization 292408127 Z23 Essential hypertension 91927305 I10 [id number] Bernabe Mcgovern MD [facility] [address] [address] 5 05/22/2017 09:47:14 05/22/2017 10:25:26 Acute bronchitis 43861255 J20.9 Essential hypertension 25167456 I10 [id number] Renetta Apodaca MD [facility] MP_310 [address] [address] 5 10/18/2017 10:15:01 10/18/2017 11:45:15 Hyperlipidemia 36249393 E78.5 Hypothyroidism 03834100 E03.9 Hyperglycemia 35845023 R 73.9 Abnormal f inding on evaluation procedure 183943588 Z78.9 Liver enzy mes level above reference range 171356278 R74.8 Dyspnea 493333982 R06.00 Administra tion of pneumococcal vaccine 45228185 Z23 [id number] MD DOMINIK YungMG_PC_A _[address] [place] [address] 5 01/17/2018 16:15:06 01/17/2018 17:11:49 Claustrophobia 98822992 F40.240 Cataract 900256849 H26.9 Essential hypertension 60858478 I10 Administra tion of influenza vaccine 42027573 Z23 [id number] MD DOMINIK [facility]_PC_A [place] [address] 5 04/20/2018 09:18:32 04/20/2018 10:20:03 Liver enzymes level above reference range 707824697 R74.8 Hyperlipidemia 40635809 E78.5 Pain of bi lateral hands 2333865044 8232154 M79.641 Hypothyroidism 06229020 E03.9 [id number] MD DOMINIK [facility]_A [place] [address] 5 05/04/2018 10:04:51 05/04/2018 11:40:23 Gastroesophageal reflux disease 339938142 K21.9 Pain of bi lateral hands 7643466829 3297595 M79.641 Essential hypertension 25952123 I10 Hyperlipidemia 84423716 E78.5 [id number] MD DOMINIK [facility]_A _[address] [place] [address] 5 07/28/2018 09:04:46 07/28/2018 09:55:34 Strain of muscle of right shoulder 6492628656 3492294 S46.911A Essential hypertension 99870783 I10 [id number] MD CASE Yung_PC_A _[address] [place], [place] [address] 5 10/27/2018 09:09:45 10/27/2018 10:07:23 Paresthesia 53567298 R20.2 Lumbar radiculopathy 128 847814 M54.16 Generalize d osteoarthritis of the hand 105454663 M15.9 Essential hypertension 85578317 I10 [id number] MD DOMINIK [facility]_A _[address] [place] [address] 5 11/10/2018 11:21:38 11/10/2018 12:07:25 Lumbar spondylosis 185145555 M47.26 Disorder of aorta 554298 06 I77.9 Lumbar radiculopathy 128 957561 M54.16 [id number] MD CASE [facility]_A _[address] [place] [address] 5 01/04/2019 14:40:44 01/04/2019 15:38:57 Screening for malignant neoplasm of colon 011573988 Z12.11 Hypothyroidism 89228984 E03.9 Multiple a ctinic keratoses 355954442 L57.0 Lumbar spondylosis 72213 0009 M47.26 Degenerati on of lumbar intervertebral disc 89124091 M51.36 Lumbar radiculopathy 128 860780 M54.16 [id number] MD DOMINIK [facility] _[address] [place], [place] [address] 5 01/25/2019 10:04:04 01/25/2019 10:47:06 Essential hypertension 04410898 I10 Generalize d osteoarthritis of the hand 558678710 M15.9 Pain in right hand 19065 57765 93370 M79.641 Multiple a ctinic keratoses 075776920 L57.0 [id number] MD DOMINIK [facility]_A _[address] [place] [address] 5 04/24/2019 09:33:46 04/24/2019 10:52:04 Pain of right wrist 3866607243 85836 M25.925 [id number] Amilcar Foley PA-C [facility] HAND [address] [place] [address] 05/15/2019 08:30:37 05/15/2019 09:37:16 Pain of right wrist 2512320840 25841 M25.531 Sprain of carpometacarpal joint 168502538 S63.8X1D [id number] Renetta Apodaca MD MG_PC_A _[address] [place] [address] 5 10/30/2019 15:09:21 10/30/2019 16:20:57 Right flank pain 322470158 R10.9 Essential hypertension 44255534 I10 Hyperlipidemia 92398787 E78.5 [id number] MD DOMINIK [facility]_A _[address] [place], [place] [address] 05/08/2020 16:09:41 05/08/2020 17:15:52 Benign prostatic hyperplasia 824998715 N40.0 Gastroesop hageal reflux disease 784277254 K21.9 Hyperglycemia 46245393 R 73.9 Vitamin D deficiency 347 27164 E55.9 Vitamin B1 2 deficiency (non anemic) 75803588 E53.8 Hypothyroidism 82249427 E03.9 Hyperlipidemia 58251285 E78.5 [id number] MD DOMINIK [facility]ung[facility]_A _[address] [place] [address] 5 12/11/2020 09:06:13 12/11/2020 10:25:56 Paresthesia 07416845 R20.2 Hyperglycemia 78273324 R 73.9 Hyperlipidemia 20845583 E78.5 Essential hypertension 91624923 I10 Vitamin D deficiency 347 28810 E55.9 Vitamin B deficiency 479 63003 E53.9 Screening for malignant neoplasm of prostate 326457324 Z12.5 Thyroid di sorder screening 532323207 Z13.29 [id number] MD CASE [facility]ung[facility]_A _[address] [place] [address] 5 01/08/2021 09:31:15 01/08/2021 10:34:37 Body mass index 25-29 - overweight 618073086 Z68.25 E66.3 Pain of ri ght knee region 2016695224 08612 M25.561 Abnormal f inding on evaluation procedure 132093148 Z78.9 Health Concerns Section Related Observation LastModified by Organization Detai ls LastModified Time None Recorded Concern Status LastModified by Organization Details LastModified Time None Recorded Advance Directives Directive N: Payers Insurance Date Sequence Insurance Name Policy Number Policy Adam Covered Member ID Adam Member ID Guarantor Name 01/13/2021 1 [facility] (MEDICARE REPLACEMENT/ ADVANTAGE - PPO) [id number] Nghia Yoo [id number] Nghia Yoo 04/25/2019 1 [facility] COMMUNITY [facility] (MEDICARE REPLACEMENT/ ADVANTAGE - POS) [id number] Nghia Yoo [id number] Nghia Yoo 06/07/2021 1 [facility] (MEDICARE REPLACEMENT/ ADVANTAGE - HMO) [id number] Nghia Yoo [id number] Nghia Yoo 09/17/2016 GENERIC WORKERS COMP Nghia Yoo 05/15/2015 1 [employer] (POS) [id number] Nghia Yoo [id number] Nghia Yoo 03/20/2014 1 [employer] (PPO) [id number] Nghia Yoo [id number] Nghia Yoo 09/19/2015 SLIDING FEE SCHEDULE - DISCOUNT Nghia Yoo 04/24/2019 3 [employer] (MEDICARE SUPPLEMENT) Nghia Yoo [id number] Nghia Yoo 05/15/2015 1 [place]ghia Yoo [id number] Nghia Yoo 04/25/2019 1 [place] Yoo [id number] Nghia Yoo 04/25/2019 [place] [employer] Nghia Yoo [id number] Nghia Yoo Notes Date Note Type Note Provider Name a sc Address Organization Details Recorded Time 05/15/2019 text/html CHIEF COMPLAINT: New patient with right wrist and thumb pain. HISTORY OF PRESENT ILLNESS: This is a 73-year-old, right-handed male, who is here today for evaluation of his right wrist and thumb pain. He has been having pain for last three to four months in the wrist and thumb. His thumb is the worst with pain of 8/10 that is constant. His wrist is improved over the last three or four days. He denies numbness, tingling, or burning. There is no new injury. PAST MEDICAL HISTORY/REVIEW OF SYSTEMS: Allergies, medical history, surgical history, past family history, and social history all reviewed and discussed with patient today. Avila Foley PA-C [address] [place] [address], [place], [address], [place] [facility] 05/23/2019 15:04:48
--- OUTSIDE RECORDS SUMMARY | 2024-08-29 08:24 | XMS_ITS | Data Portability ---
Author Organization [facility] Address [address] [place] [address] Care Team Providers Care Emergency Dept Tech Name Role Phone JOSIE YOUNG Primary Care Provider Assessment No assessment recorded. Plan of Treatment Reminders Order Date Submit Date Provider Last Modified By Organization Details Last Modified Time Details Appointments ANY 15 2024 10:00A M LESLIE FORBES Not available Not available Not available Lab CMP, serum or plasma 2024 025 DIANE Graham, [address], [place], [address], 05/11/2024 12:13:18 CBC w/ auto diff 2024 025 DIANE Graham, [address], [place], [address], 05/11/2024 12:13:19 HbA1c (hemoglob in A1c), blood 2024 025 [email or web address] In-Office Order, Internal Use Only DO Not Attach Compendium DO Not Attach Compendium, Do Not Delete/merge, [id number] 05/10/2024 12:21:37 TSH + free T4, serum 2024 025 DIANE Graham, [address], [place], [address], 05/11/2024 12:13:15 lipid panel, serum or plasma 2024 025 DIANE Graham, [address], [place], [address], 05/11/2024 12:13:17 HbA1c (hemoglob in A1c), blood 2023 024 [facility] [address], [place], [address], 06/17/2023 15:11:04 CBC w/ auto diff 2023 024 [facility], [address], [place], [address], 06/17/2023 15:11:05 CMP, serum or plasma 2023 024 [facility], [address], [place], [address], 06/17/2023 10:08:53 lipid panel, serum 2023 024 [facility], [address], [place], [address], 06/17/2023 15:11:03 TSH + free T4, serum 2023 024 [facility], [address], [place], [address], 06/17/2023 15:11:02 HbA1c (hemoglob in A1c), blood 2022 023 [email or web address] In-Office Order, Internal Use Only DO Not Attach Compendium DO Not Attach Compendium, Do Not Delete/merge, [id number] 12/08/2022 09:47:14 Referral gastroent erologist referral 2023 024 [email or web address] Tamera Foote MD, [address], [place], [address], 07/21/2023 10:08:23 Procedures None recorded. Surgeries None recorded. Imaging None recorded. Medication Orders tadalafil 20 mg tablet 2023 024 DIANE [facility] [address], [address] , [place], [address], 06/11/2023 09:17:09 levothyro xine 75 mcg tablet 2022 023 DIANE [facility], [facility] [address], [facility] [address], [place], [place], [id number], 12/08/2022 09:56:46 Patient TargetsNo targets recorded. Patient Instructions Encounter Date Encounter Id Patient Instructions Last Modified By Organization Details Last Modified Time 06/11/2023 [id number] A healthy lifestyle: care instructions [email or web address] Not available 06/11/2023 09:25:25 advance care planning: care instructions [email or web address] Not available 06/11/2023 09:27:43 preventing falls : care instructions [email or web address] Not available 06/11/2023 09:27:43 Quitting Tobacco : Care Instructions [email or web address] Not available 06/11/2023 09:27:43 [facility] kbarbero Not available 06/11/2023 09:27:43 eating healthy foods: care instructions kbarbero Not available 06/11/2023 09:27:43 05/10/2024 [id number] A healthy lifestyle: care instructions [email or web address] Not available 05/10/2024 12:30:47 Reason for Referral [facility] Referral for Screening for malignant neoplasm of colon Referring Physician: Josie Young, Family Medicine, Encounter Date: 06/11/2023 Results Created Date Observation Date Name Description Value Unit Range Abnormal Flag Note LastModifiedBy Organization Detail LastModifiedTime 12/09/1912/08/2022 HbA1c (hemo globi n A1c), blood HbA1c 6.1 Not Available In-Office Order Internal Use Only DO Not Attach Compendium DO Not Attach Compendium, Do Not Delete/merge, [id number] 12/08/2022 09:27:58 06/11/19 24 06/17/[address] PROBL EM request problem TNP Test not perfo rmed. Unabl e to perfo rm cell count s due to deter iorat ion of cells prese nt. TEST: [id number] CBC With Diffe renti al/Pl atele t Not Available [facility] ([facility]) [address] [place], [address], 06/17/2023 15:11:01 06/11/19 24 06/15/2023 TSH+F REE T4 TSH 4.540 uIU/m L 0.450- 4.500 above high normal Not Available [facility] ([facility]) [address] [facility], [place], [address], 06/17/2023 15:11:02 06/11/19 24 06/15/2023 TSH+F REE T4 T4,free(dire ct) 1.59 NG/dL 0.82-1 .77 Not Available [facility] ([facility]) [address] [facility], [place], [address], 06/17/2023 15:11:02 06/11/19 24 06/15/2023 LIPID PANEL WITH LDL/H DL RATIO cholesterol, total 174 mg/dL 100-19 9 Not Available [facility] ([facility]) [address] [place], [address], 06/17/2023 15:11:03 06/11/19 24 06/15/2023 LIPID PANEL WITH LDL/H DL RATIO triglyceride s 202 mg/dL 0-149 above high normal Not Available [facility] ([facility]) [address] [place], [address], 06/17/2023 15:11:03 06/11/19 24 06/15/2023 LIPID PANEL WITH LDL/H DL RATIO HDL cholesterol 43 mg/dL >39 Not Available [facility] ([facility]) [address] [place], [address], 06/17/2023 15:11:03 06/11/19 24 06/15/2023 LIPID PANEL WITH LDL/H DL RATIO VLDL cholesterol tracey 35 mg/dL 5-40 Not Available [facility] ([facility]) [address] [place], [address], 06/17/2023 15:11:03 06/11/19 24 06/15/2023 LIPID PANEL WITH LDL/H DL RATIO LDL chol calc ([facility]) 96 mg/dL 0-99 Not Available [facility] ([facility]) [address] [facility], [place], [address], 06/17/2023 15:11:03 06/11/19 24 06/15/2023 LIPID PANEL WITH LDL/H DL RATIO LDL/HDL ratio 2.2 ratio 0.0-3. 6 LDL/H DL Ratio Men Women 1/2 Avg.R isk 1.0 1.5 Avg.R isk 3.6 3.2 2X Avg.R isk 6.2 5.0 3X Avg.R isk 8.0 6.1 Not Available [facility] ([facility]) [address] [place], [address], 06/17/2023 15:11:03 06/11/19 24 06/15/2023 COMP. METAB OLIC PANEL (14) glucose 113 mg/dL 70-99 above high normal Not Available [facility] ([facility]) [address] [place], [address], 06/17/2023 15:11:04 06/11/19 24 06/15/2023 COMP. METAB OLIC PANEL (14) BUN 16 mg/dL 8-27 Not Available [facility] ([facility]) [address] [place], [address], 06/17/2023 15:11:04 06/11/19 24 06/15/2023 COMP. METAB OLIC PANEL (14) creatinine 0.90 mg/dL 0.76-1 .27 Not Available [facility] ([facility]) [address] [place], [address], 06/17/2023 15:11:04 06/11/19 24 06/15/2023 COMP. METAB OLIC PANEL (14) eGFR 89 mL/mi n/1.7 3 >59 Not Available [facility] ([facility]) [address] [facility], [place], [address], 06/17/2023 15:11:04 06/11/19 24 06/15/2023 COMP. METAB OLIC PANEL (14) BUN/creatini ne ratio 18 10-24 Not Available [facility] ([facility]) [address] [facility], [place], [address], 06/17/2023 15:11:04 06/11/19 24 06/15/2023 COMP. METAB OLIC PANEL (14) sodium 139 mmol/ L 134-14 4 Not Available [facility] ([facility]) [address] [facility], [place], [address], 06/17/2023 15:11:04 06/11/19 24 06/15/2023 COMP. METAB OLIC PANEL (14) potassium 4.4 mmol/ L 3.5-5. 2 Not Available [facility] ([facility]) [address] [facility], [place], [address], 06/17/2023 15:11:04 06/11/19 24 06/15/2023 COMP. METAB OLIC PANEL (14) chloride 103 mmol/ L 96-106 Not Available [facility] ([facility]) [address] [facility], [place], [address], 06/17/2023 15:11:04 06/11/19 24 06/15/2023 COMP. METAB OLIC PANEL (14) carbon dioxide, total 20 mmol/ L 20-29 Not Available [facility] ([facility]) [address] [facility], [place], [address], 06/17/2023 15:11:04 06/11/19 24 06/15/2023 COMP. METAB OLIC PANEL (14) calcium 9.2 mg/dL 8.6-10 .2 Not Available [facility] ([facility]) [address] [place], [address], 06/17/2023 15:11:04 06/11/19 24 06/15/2023 COMP. METAB OLIC PANEL (14) protein, total 7.0 g/dL 6.0-8. 5 Not Available [facility] ([facility]) [address] [place], [address], 06/17/2023 15:11:04 06/11/19 24 06/15/2023 COMP. METAB OLIC PANEL (14) albumin 4.3 g/dL 3.8-4. 8 Not Available [facility] ([facility]) [address] [place], [address], 06/17/2023 15:11:04 06/11/19 24 06/15/2023 COMP. METAB OLIC PANEL (14) globulin, total 2.7 g/dL 1.5-4. 5 Not Available [facility] ([facility]) [address] [place], [address], 06/17/2023 15:11:04 06/11/19 24 06/15/2023 COMP. METAB OLIC PANEL (14) A/G ratio 1.6 1.2-2. 2 Not Available [facility] ([facility]) [address] [place], [address], 06/17/2023 15:11:04 06/11/19 24 06/15/2023 COMP. METAB OLIC PANEL (14) bilirubin, total 0.6 mg/dL 0.0-1. 2 Not Available [facility] ([facility]) [address] [place], [address], 06/17/2023 15:11:04 06/11/19 24 06/15/2023 COMP. METAB OLIC PANEL (14) alkaline phosphatase 87 IU/L 44-121 Not Available [facility] ([facility]) [address] [facility], [place], [address], 06/17/2023 15:11:04 06/11/19 24 06/15/2023 COMP. METAB OLIC PANEL (14) AST (SGOT) 18 IU/L 0-40 Not Available [facility] ([facility]) [address] [facility], [place], [address], 06/17/2023 15:11:04 06/11/19 24 06/15/2023 COMP. METAB OLIC PANEL (14) ALT (SGPT) 18 IU/L 0-44 Not Available [facility] ([facility]) [address] [place], [address], 06/17/2023 15:11:04 06/11/19 24 06/15/2023 HEMOG LOBIN A1C hemoglobin A1C 6.0 % 4.8-5. 6 above high normal Predi abete s: 5.7 - 6.4 Diabe christiano: >6.4 Glyce esther contr ol for adult s with diabe christiano: <7.0 Not Available [facility] ([facility]) [address] [place], [address], 06/17/2023 15:11:04 06/11/19 24 06/17/2023 CBC WITH DIFFE RENTI AL/PL ATELE T WBC - x10e3 /uL Test not perfo rmed. Unabl e to perfo rm cell count s due to deter iorat ion of cells prese nt. Not Available [facility] ([facility]) [address] [facility], [place], [address], 06/17/2023 15:11:05 06/11/19 24 06/17/2023 CBC WITH DIFFE RENTI AL/PL ATELE T RBC - Test not perfo rmed Not Available [facility] ([facility]) [address] [facility], [place], [address], 06/17/2023 15:11:05 06/11/19 24 06/17/2023 CBC WITH DIFFE RENTI AL/PL ATELE T hemoglobin - Test not perfo rmed Not Available [facility] ([facility]) [address] [facility], [place], [address], 06/17/2023 15:11:05 06/11/19 24 06/17/2023 CBC WITH DIFFE RENTI AL/PL ATELE T hematocrit - Test not perfo rmed Not Available [facility] ([facility]) [address] [place], [address], 06/17/2023 15:11:05 06/11/19 24 06/17/2023 CBC WITH DIFFE RENTI AL/PL ATELE T platelets - Test not perfo rmed Not Available [facility] ([facility]) [address] [facility], [place], [address], 06/17/2023 15:11:05 06/11/19 24 06/17/2023 CBC WITH DIFFE RENTI AL/PL ATELE T neutrophils - Test not perfo rmed Not Available [facility] ([facility]) [address] [facility], [place], [address], 06/17/2023 15:11:05 06/11/19 24 06/17/2023 CBC WITH DIFFE RENTI AL/PL ATELE T lymphs - Test not perfo rmed Not Available [facility] ([facility]) [address] [place], [address], 06/17/2023 15:11:05 06/11/19 24 06/17/2023 CBC WITH DIFFE RENTI AL/PL ATELE T monocytes - Test not perfo rmed Not Available [facility] ([facility]) [address] [place], [address], 06/17/2023 15:11:05 06/11/19 24 06/17/2023 CBC WITH DIFFE RENTI AL/PL ATELE T eos - Test not perfo rmed Not Available [facility] ([facility]) [address] [facility], [place], [address], 06/17/2023 15:11:05 06/11/19 24 06/17/2023 CBC WITH DIFFE RENTI AL/PL ATELE T lymphs (absolute) - Test not perfo rmed Not Available [facility] ([facility]) [address] [facility], [place], [address], 06/17/2023 15:11:05 06/11/19 24 06/17/2023 CBC WITH DIFFE RENTI AL/PL ATELE T eos (absolute) - Test not perfo rmed Not Available [facility] ([facility]) [address] [facility], [place], [address], 06/17/2023 15:11:05 06/11/19 24 06/17/2023 CBC WITH DIFFE RENTI AL/PL ATELE T baso (absolute) - Test not perfo rmed Not Available [facility] ([facility]) [address] [facility], [place], [address], 06/17/2023 15:11:05 05/10/19 25 05/11/2024 TSH+F REE T4 TSH 3.320 uIU/m L 0.450- 4.500 Not Available [facility] ([facility]) [address] [place], [address], 05/11/2024 12:13:15 05/10/19 25 05/11/2024 TSH+F REE T4 T4,free(dire ct) 1.53 NG/dL 0.82-1 .77 Not Available [facility] ([facility]) [address] [place], [address], 05/11/2024 12:13:15 05/10/19 25 05/11/2024 LIPID PANEL WITH LDL/H DL RATIO cholesterol, total 176 mg/dL 100-19 9 Not Available [facility] ([facility]) [address] [place], [address], 05/11/2024 12:13:17 05/10/19 25 05/11/2024 LIPID PANEL WITH LDL/H DL RATIO triglyceride s 217 mg/dL 0-149 above high normal Not Available [facility] ([facility]) [address] [place], [address], 05/11/2024 12:13:17 05/10/19 25 05/11/2024 LIPID PANEL WITH LDL/H DL RATIO HDL cholesterol 43 mg/dL >39 Not Available [facility] ([facility]) [address] [place], [address], 05/11/2024 12:13:17 05/10/19 25 05/11/2024 LIPID PANEL WITH LDL/H DL RATIO VLDL cholesterol tracey 37 mg/dL 5-40 Not Available [facility] ([facility]) [address] [place], [address], 05/11/2024 12:13:17 05/10/19 25 05/11/2024 LIPID PANEL WITH LDL/H DL RATIO LDL chol calc (nih) 96 mg/dL 0-99 Not Available [facility] ([facility]) [address] [place], [address], 05/11/2024 12:13:17 05/10/19 25 05/11/2024 LIPID PANEL WITH LDL/H DL RATIO LDL/HDL ratio 2.2 ratio 0.0-3. 6 LDL/H DL Ratio Men Women 1/2 Avg.R isk 1.0 1.5 Avg.R isk 3.6 3.2 2X Avg.R isk 6.2 5.0 3X Avg.R isk 8.0 6.1 Not Available [facility] ([facility]) [address] [facility], [place], [address], 05/11/2024 12:13:17 05/10/19 25 05/11/2024 COMP. METAB OLIC PANEL (14) glucose 91 mg/dL 70-99 Not Available [facility] ([facility]) [address] [facility], [place], [address], 05/11/2024 12:13:18 05/10/19 25 05/11/2024 COMP. METAB OLIC PANEL (14) BUN 11 mg/dL 8-27 Not Available [facility] ([facility]) [address] [facility], [place], [address], 05/11/2024 12:13:18 05/10/19 25 05/11/2024 COMP. METAB OLIC PANEL (14) creatinine 0.94 mg/dL 0.76-1 .27 Not Available [facility] ([facility]) [address] [facility] [place], [address], 05/11/2024 12:13:18 05/10/19 25 05/11/2024 COMP. METAB OLIC PANEL (14) eGFR 84 mL/mi n/1.7 3 >59 Not Available [facility] ([facility]) [address] [facility], [place], [address], 05/11/2024 12:13:18 05/10/19 25 05/11/2024 COMP. METAB OLIC PANEL (14) BUN/creatini ne ratio 12 10-24 Not Available [facility] ([facility]) [address] [facility], [place], [address], 05/11/2024 12:13:18 05/10/19 25 05/11/2024 COMP. METAB OLIC PANEL (14) sodium 136 mmol/ L 134-14 4 Not Available [facility] ([facility]) [address] [facility] [place], [address], 05/11/2024 12:13:18 05/10/19 25 05/11/2024 COMP. METAB OLIC PANEL (14) potassium 4.6 mmol/ L 3.5-5. 2 Not Available [facility] ([facility]) [address] [facility], [place], [address], 05/11/2024 12:13:18 05/10/19 25 05/11/2024 COMP. METAB OLIC PANEL (14) chloride 101 mmol/ L 96-106 Not Available [facility] ([facility]) [address] [facility] [place], [address], 05/11/2024 12:13:18 05/10/19 25 05/11/2024 COMP. METAB OLIC PANEL (14) carbon dioxide, total 20 mmol/ L 20-29 Not Available [facility] ([facility]) [address] [facility], [place], [address], 05/11/2024 12:13:18 05/10/19 25 05/11/2024 COMP. METAB OLIC PANEL (14) calcium 9.2 mg/dL 8.6-10 .2 Not Available [facility] ([facility]) [address] [facility] [place], [address], 05/11/2024 12:13:18 05/10/19 25 05/11/2024 COMP. METAB OLIC PANEL (14) protein, total 7.0 g/dL 6.0-8. 5 Not Available [facility] ([facility]) [address] [place], [address], 05/11/2024 12:13:18 05/10/19 25 05/11/2024 COMP. METAB OLIC PANEL (14) albumin 4.4 g/dL 3.8-4. 8 Not Available [facility] ([facility]) [address] [facility] [place], [address], 05/11/2024 12:13:18 05/10/19 25 05/11/2024 COMP. METAB OLIC PANEL (14) globulin, total 2.6 g/dL 1.5-4. 5 Not Available [facility] ([facility]) [address] [place], [address], 05/11/2024 12:13:18 05/10/19 25 05/11/2024 COMP. METAB OLIC PANEL (14) bilirubin, total 0.5 mg/dL 0.0-1. 2 Not Available [facility] ([facility]) [address] [facility], [place], [address], 05/11/2024 12:13:18 05/10/19 25 05/11/2024 COMP. METAB OLIC PANEL (14) alkaline phosphatase 80 IU/L 44-121 Not Available [facility] ([facility]) [address] [facility], [place], [address], 05/11/2024 12:13:18 05/10/19 25 05/11/2024 COMP. METAB OLIC PANEL (14) AST (SGOT) 22 IU/L 0-40 Not Available [facility] ([facility]) [address] [facility], [place], [address], 05/11/2024 12:13:18 05/10/19 25 05/11/2024 COMP. METAB OLIC PANEL (14) ALT (SGPT) 19 IU/L 0-44 Not Available [facility] ([facility]) [address] [facility], [place], [address], 05/11/2024 12:13:18 05/10/19 25 05/11/2024 CBC WITH DIFFE RENTI AL/PL ATELE T WBC 6.7 x10e3 /uL 3.4-10 .8 Not Available [facility] ([facility]) [address] [facility], [place], [address], 05/11/2024 12:13:19 05/10/19 25 05/11/2024 CBC WITH DIFFE RENTI AL/PL ATELE T RBC 4.51 x10e6 /uL 4.14-5 .80 Not Available [facility] ([facility]) [address] [facility], [place], [address], 05/11/2024 12:13:19 05/10/19 25 05/11/2024 CBC WITH DIFFE RENTI AL/PL ATELE T hemoglobin 14.0 g/dL 13.0-1 7.7 Not Available [facility] ([facility]) [address] [place], [address], 05/11/2024 12:13:19 05/10/19 25 05/11/2024 CBC WITH DIFFE RENTI AL/PL ATELE T hematocrit 42.1 % 37.5-5 1.0 Not Available [facility] ([facility]) [address] [place], [address], 05/11/2024 12:13:19 05/10/1905/11/2024 CBC WITH DIFFE RENTI AL/PL ATELE T MCV 93 fL 79-97 Not Available [facility] ([facility]) [address] [place], [address], 05/11/2024 12:13:19 05/10/19 25 05/11/2024 CBC WITH DIFFE RENTI AL/PL ATELE T MCH 31.0 pg 26.6-3 3.0 Not Available [facility] ([facility]) [address] [place], [address], 05/11/2024 12:13:19 05/10/19 25 05/11/2024 CBC WITH DIFFE RENTI AL/PL ATELE T MCHC 33.3 g/dL 31.5-3 5.7 Not Available [facility] ([facility]) [address] [place], [address], 05/11/2024 12:13:19 05/10/19 25 05/11/2024 CBC WITH DIFFE RENTI AL/PL ATELE T RDW 13.1 % 11.6-1 5.4 Not Available [facility] ([facility]) [address] [place], [address], 05/11/2024 12:13:19 05/10/19 25 05/11/2024 CBC WITH DIFFE RENTI AL/PL ATELE T platelets 203 x10e3 /uL 150-45 0 Not Available [facility] ([facility]) [address] [facility], [place], [address], 05/11/2024 12:13:19 05/10/19 25 05/11/2024 CBC WITH DIFFE RENTI AL/PL ATELE T neutrophils 59 % notest ab. Not Available [facility] ([facility]) [address] [facility], [place], [address], 05/11/2024 12:13:19 05/10/19 25 05/11/2024 CBC WITH DIFFE RENTI AL/PL ATELE T lymphs 29 % notest ab. Not Available [facility] ([facility]) [address] [facility], [place], [address], 05/11/2024 12:13:19 05/10/19 25 05/11/2024 CBC WITH DIFFE RENTI AL/PL ATELE T monocytes 9 % notest ab. Not Available [facility] ([facility]) [address] [facility], [place], [address], 05/11/2024 12:13:19 05/10/19 25 05/11/2024 CBC WITH DIFFE RENTI AL/PL ATELE T eos 2 % notest ab. Not Available [facility] ([facility]) [address] [facility], [place], [address], 05/11/2024 12:13:19 05/10/19 25 05/11/2024 CBC WITH DIFFE RENTI AL/PL ATELE T basos 1 % notest ab. Not Available [facility] ([facility]) [address] [facility], [place], [address], 05/11/2024 12:13:19 05/10/19 25 05/11/2024 CBC WITH DIFFE RENTI AL/PL ATELE T neutrophils (absolute) 3.9 x10e3 /uL 1.4-7. 0 Not Available [facility] ([facility]) [address] [facility], [place], [address], 05/11/2024 12:13:19 05/10/19 25 05/11/2024 CBC WITH DIFFE RENTI AL/PL ATELE T lymphs (absolute) 1.9 x10e3 /uL 0.7-3. 1 Not Available [facility] ([facility]) [address] [facility], [place], [address], 05/11/2024 12:13:19 05/10/19 25 05/11/2024 CBC WITH DIFFE RENTI AL/PL ATELE T monocytes(ab solute) 0.6 x10e3 /uL 0.1-0. 9 Not Available [facility] ([facility]) [address] [facility], [place], [address], 05/11/2024 12:13:19 05/10/19 25 05/11/2024 CBC WITH DIFFE RENTI AL/PL ATELE T eos (absolute) 0.1 x10e3 /uL 0.0-0. 4 Not Available [facility] ([facility]) [address] [facility], [place], [address], 05/11/2024 12:13:19 05/10/19 25 05/11/2024 CBC WITH DIFFE RENTI AL/PL ATELE T baso (absolute) 0.0 x10e3 /uL 0.0-0. 2 Not Available [facility] ([facility]) [address] [facility], [place], [address], 05/11/2024 12:13:19 05/10/19 25 05/11/2024 CBC WITH DIFFE RENTI AL/PL ATELE T immature granulocytes 0 % notest ab. Not Available [facility] ([facility]) [address] [facility], [place], [address], 05/11/2024 12:13:19 05/10/19 25 05/11/2024 CBC WITH DIFFE RENTI AL/PL ATELE T immature grans (abs) 0.0 x10e3 /uL 0.0-0. 1 Not Available [facility] ([facility]) [address] [facility], [place], [address], 05/11/2024 12:13:19 05/10/19 25 05/10/2024 HbA1c (hemo globi n A1c), blood HbA1c 6.2% Not Available In-Office Order Internal Use Only DO Not Attach Compendium DO Not Attach Compendium, Do Not Delete/merge, [id number] 05/10/2024 12:21:25 Result Notes None recorded. Problems Name Problem SNOMED Code Status Onset Date Resolution Date Notes Provider Name and Address Organization Details Recorded Time Hypothyroidis m 62648546 Active 2021 LESLIE FORBES Attn: Rocio g,[address] [facility], [place], [address], [place] [facility] 2 11:07:04 Essential hypertension 87177721 Active 2021 LESLIE FORBES Attn: Rocio g,[address] [facility], [place], [address], [place] [facility] 2 11:07:16 Hyperlipidemi a 85857242 Active 2021 LESLIE FORBES Attn: Omarin g,[address] [facility], [place], [address], [place] [facility] 2 11:08:01 Type 2 diabetes mellitus 41635734 Active 2021 LESLIE FORBES Attn: Rocio g,[address] [facility], [place], [address], [place] [facility] 4 09:24:13 Low back pain 282219901 Active 2021 LESLIE FORBES Attn: Omarin g,[address] [facility], [place], [address], [place] [facility] 2 12:50:50 Benign prostatic hyperplasia without outflow obstruction 490290346 Active 2022 LESLIE FORBES Attn: Rocio jackson,[address], [place], [address], [place] [facility] 3 10:06:49 Screening for malignant neoplasm of colon Active 2023 report in chart, repeat in 2026 LESLIE FORBES Attn: Rocio jackson,[address], [place], [address], [place] [facility] 4 15:12:22 Problem Notes None recorded. Medical Equipment None Reported. Allergies No known drug allergies Medications Name Sig Start Date Stop Date Status Note LastModified by Organization Details LastModified Time metformin 500 mg tablet TAKE 1 TABLET BY MOUTH DAILY WITH A MEAL 2024 active Not Available Not Available Not Avai lable lisinopril 20 mg tablet Take 1 tablet every day by oral route in the morning for 90 days. 2024 active Not Available Not Available Not Avai lable acetaminoph en 300 mg-codeine 30 mg tablet TAKE 1 TO 2 TABLETS BY MOUTH EVERY 6 HOURS NEEDED FOR PAIN 12/08 completed Not Available Not Available Not Available sildenafil 25 mg tablet 06/22 completed Not Available Not Available Not Available simvastatin 40 mg tablet TAKE 1 TABLET BY MOUTH DAILY AT BEDTIME 2024 active Not Available Not Available Not Avai lable levothyroxi ne 75 mcg tablet Take 1 tablet every day by oral route in the morning for 90 days. 2024 active Not Available Not Available Not Avai lable ketorolac 0.5 % eye drops INSTILL 1 DROP INTO LEFT EYE THREE TIMES DAILY FOR 6 WEEKS active Not Available Not Available No t Available tamsulosin 0.4 mg capsule TAKE 1 CAPSULE BY MOUTH DAILY 06/10 completed Not Available Not Available Not Available levothyroxi ne 50 mcg tablet 07/14 completed Not Available Not Available Not Available amoxicillin 250 mg capsule TAKE 1 CAPSULE BY MOUTH EVERY 8 HOURS UNTIL GONE 12/08 completed Not Available Not Available Not Available timolol maleate 0.5 % eye drops active Not Available Not Available Not Available tadalafil 5 mg tablet TAKE 1 TABLET BY MOUTH ONCE DAILY IN THE MORNING 05/10 completed Not Available Not Available Not Available tadalafil 10 mg tablet Take 1 tablet as needed by oral route for 30 days. 03/04 completed Not Available Not Available Not Available tadalafil 20 mg tablet Take 1 tablet every day by oral route in the morning for 90 days. 2024 active Not Available Not Available Not Avai lable hydrochloro thiazide 12.5 mg tablet TAKE 1 TABLET BY MOUTH ONCE DAILY IN THE MORNING FOR HIGH BLOOD PRESSURE active Not Available Not Available No t Available cyclobenzap rine 7.5 mg tablet Take 1 tablet 3 times a day by oral route as needed for 30 days. 12/01 completed Not Available Not Available Not Available Vitals Date Recorded Systolic blood pressure Diastolic blood pressure Provider Name and Address Organization Details Last Updated DateTime 05/10/2024 150 mm[Hg] 80 mm[Hg] LESLIE FORBES Attn: [address]ing[address] [place], [address], [facility] 05/10/2024 12:37:24 Date Recorded Body height Body mass index (BMI) Body weight Oxygen saturation Oxygen saturation in Arterial blood by Pulse oximetry Heart rate Respiratory rate Systolic blood pressure Diastolic blood pressure Provider Name and Address Organization Details Last Updated DateTime 5 185.42 cm 26.4 kg/m2 28395.4 7 g 96 % 96 % 70 /min 17 /min 160 mm[Hg] 80 mm[Hg] Bethany Montes MA [place] - [facility] 12:15:43 Date Recorded Respiratory rate Provider Name a sd Address Organization Details Last Updated DateTime 06/11/2023 18 /min LESLIE FORBES Attn: Accounting[address] [place], [address], [place] - [facility] 06/11/2023 08:53:13 Date Recorded Body height Body mass index (BMI) Body weight Oxygen saturation Oxygen saturation in Arterial blood by Pulse oximetry Heart rate Systolic blood pressure Diastolic blood pressure Provider Name and Address Organization Details Last Updated DateTime 4 185.42 cm 25.5 kg/m2 72503.4 3 g 98 % 98 % 62 /min 127 mm[Hg] 76 mm[Hg] Maricarmen Caban MA [facility] 4 08:46:25 Date Recorded Systolic blood pressure Diastolic blood pressure Systolic blood pressure Diastolic blood pressure Provider Name and Address Organization Details Last Updated DateTime 08/17/2023 120 mm[Hg] 74 mm[Hg] 120 mm[Hg] 70 mm[Hg] LESLIE FORBES Attn: Accounting ,[address] [place], [address] , [facility] 4 12:48:22 Date Recorded Body height Body mass index (BMI) Body weight Oxygen saturation Oxygen saturation in Arterial blood by Pulse oximetry Heart rate Respiratory rate Systolic blood pressure Diastolic blood pressure Provider Name and Address Organization Details Last Updated DateTime 4 185.42 cm 24.9 kg/m2 08406.9 6 g 97 % 97 % 61 /min 18 /min 160 mm[Hg] 67 mm[Hg] Tisha Charlton MA [facility] 4 12:37:56 Date Recorded Body height Body mass index (BMI) Body weight Oxygen saturation Oxygen saturation in Arterial blood by Pulse oximetry Heart rate Respiratory rate Systolic blood pressure Diastolic blood pressure Provider Name and Address Organization Details Last Updated DateTime 3 185.42 cm 26 kg/m2 04505.4 g 100 % 100 % 72 /min 16 /min 126 mm[Hg] 74 mm[Hg] Tisha Charlton MA [facility] 3 09:15:39 Date Recorded Respiratory rate Provider Name a sd Address Organization Details Last Updated DateTime 12/16/2022 18 /min LESLIE FORBES Attn: Accounting,[address] [place], [address], [facility] 12/16/2022 13:03:31 Date Recorded Body height Body mass index (BMI) Body weight Oxygen saturation Oxygen saturation in Arterial blood by Pulse oximetry Heart rate Systolic blood pressure Diastolic blood pressure Provider Name and Address Organization Details Last Updated DateTime 3 185.42 cm 25.9 kg/m2 52919.2 g 96 % 96 % 55 /min 112 mm[Hg] 64 mm[Hg] Maricarmen Caban MA [facility] 3 12:46:25 Social History Question Answer Notes LastModified by Organizat ion Details LastModified Time Tobacco Smoking Status Never Smoker Angeline García RN [facility], [place] - [facility] 06/02/2021 10:55:50 Do You Have An Advance Directive? No Information not available 06/02/2021 Are You Blind Or Do You Have Difficulty Seeing? No Information not available 06/02/2021 What Is Your Level Of Caffeine Consumption? Moderate Coffee. [email or web address] Information not available 03/04/2022 In The 14 Days Before Symptom Onset, Have You Had Close Contact With A Laboratory-confir med COVID-19 While That Case Was Ill? No Information not available 06/02/2021 In The 14 Days Before Symptom Onset, Have You Had Close Contact With A Person Who Is Under Investigation For COVID-19 While That Person Was Ill? No Information not available 06/02/2021 Have You Been To An Area Known To Be High Risk For COVID-19? No Information not available 06/02/2021 Are You Deaf Or Do You Have Serious Difficulty Hearing? No Information not available 06/02/2021 What Type Of Diet Are You Following? REGULAR Information not available 06/02/2021 Are There Any Guns Present In Your Home? No Information not available 06/02/2021 What Was The Date Of Your Most Recent Tobacco Screening? 05/10/2024 Information not available 05/10/2024 What Is Your Relationship Status? Information not available 06/02/2021 Do You Use Your Seat Belt Or Car Seat Routinely? Yes Information not available 06/02/2021 Are You Sexually Active? No Information not available 06/02/2021 Do You Have Smoke And Carbon Monoxide Detectors In Your Home? Yes Information not available 06/02/2021 Are You Passively Exposed To Smoke? No Information no t available 06/02/2021 Do You Use Sunscreen Routinely? Yes Information not available 06/02/2021 Has Tobacco Cessation Counseling Been Provided? Yes Information not available 05/27/2022 On What Date Was Tobacco Cessation Counseling Provided? 05/10/2024 Information not available 05/10/2024 Sex: Male Functional Status Question Answer Note LastModified by Organizat ion Details LastModified Time Do you use any illicit or recreational drugs? No Information not available 06/02/2021 Do you or have you ever used any other forms of tobacco or nicotine? No Information not available 07/10/2021 What is your level of alcohol consumption? None Information not available 07/10/2021 Are you currently employed? No Information not available 06/02/2021 Are you able to care for yourself? Yes Information n ot available 06/02/2021 What is your exercise level? Occasional Information not available 06/02/2021 Mental Status Question Answer Note LastModified by Organization D etails LastModified Time Do you feel stressed (tense, restless, nervous, or anxious, or unable to sleep at night)? [id number] Information not available 06/02/2021 Family History Relationship Description Onset Age of this Age Resolved Age Notes LastModified by Organization Details LastModified Time Father Heart disease [email or web address] Not available 2021 10:55:10 Medical History Condition Response Coronary Artery Disease N Other N High Blood Pressure Y Atrial Fibrillation N Thyroid Problems N Kidney or Bladder Problems N GI Problems N Depression N COPD N Blood Clots N Skin Problems N Eating Disorder N Anemia N Heart Attack ([place]) N Anxiety Disorder N Diabetes N Muscle, Joint, or Bone Problems N Seizures/Epilepsy N Acid Reflux (GERD) N Cancer N Stroke N Asthma N Allergies N ADHD N Substance Abuse N High Cholesterol Y Hepatitis N Liver Disease N Schizophrenia N Headaches N Heart Failure N Osteoporosis N Immunizations Vaccine Type Date Status Note Provider Nam e and Address Organization Details Recorded Time COVID-19, mRNA, LNP-S, PF, 100 mcg/0.5mL dose or 50 mcg/0.25mL dose 1 completed Angeline García RN null, [place] - [facility] 06/02/2021 10:53:46 COVID-19, mRNA, LNP-S, PF, 100 mcg/0.5mL dose or 50 mcg/0.25mL dose 1 completed Angeline García RN [place], [place] [facility] 06/02/2021 10:54:33 COVID-19, mRNA, LNP-S, PF, 100 mcg/0.5mL dose or 50 mcg/0.25mL dose 1 completed Angeline García RN [place], [place] [facility] 06/02/2021 10:54:52 Influenza, high-dose, quadrivalent, PF 2 completed Maricarmen Caban [place] null, [place] [facility] 03/04/2022 17:17:37 Pneumococcal conjugate PCV20, polysaccharide [id number] conjugate, adjuvant, PF 3 completed LESLIE FORBES Attn: Accounting[address] [place], [address], [place] [facility] 05/27/2022 18:26:30 Influenza, high-dose, quadrivalent, PF 3 completed LESLIE FORBES Attn: Accounting[address] [place], [address], [place] [facility] 12/08/2022 11:22:24 Past Encounters Encounter ID Performer Location Encounter Start Date Encounter Closed Date Diagnosis/Indication Diagnosis SNOMED-CT Code Diagnosis ICD10 Code Diagnosis Note [id number] Joselito wells MD [facility] [address] [place] [address] 06/02/2021 10:38:35 06/03/2021 06:25:22 Adult health examination 252292973 Z00.00 routine labslast labs 6 months ago Dyspnea 458758168 R06.00 x3 yrsc/o intermitte nt episodes when he can't take a deep breath, occurs at rest or with exertionno h/o asthmapt is not a smokerrequ esting work-upord ered PFTs Pain of ri ght knee joint 3944975012 17507 M25.561 x3 mosharp, stabby, and throbbing occurs with twistingpa in to front and behind kneeno trauma or injuryPEx- nl, negative apley's testsXR R knee Retention of urine 49742 4002 R33.9 c/o urinary retention and dribbling at the end of streamyea rstrial flomax Essential hypertension 93700327 I10 BP elevated today 142/912, 150/82took lisinopri this AMordered BP cuffrepeat BP at nurse visit Depression screening 171 073367 Z13.31 PHQ 0 [id number] LESLIE REED [facility] [address] [place] [address] 06/11/2021 09:30:25 06/12/2021 10:33:48 [id number] Joselito wells MD [facility] [address] [place] [address] 07/10/2021 14:44:24 07/11/2021 09:18:59 Low back pain 355299120 M54.50 07/10/21: no improvemen t with tylenol arthritish as not been able to golf due to painPEx- FROM Lumbar spine, TTP R SI jointc/w ibuprofent rial flexerilPT referralca n trial meloxicam if no relief and XR R SI joint/hip 06/2021 XR lumbar showed retrolisth esis- vertebrae sliding backward, anterolist hesis- vertebrae sliding forward, severe fact joint arthritis L4-T1csmob ssed results with pt. Pain is worse with turning to left, have to take weight off of right leg to relieve pain. taking ibuprofen consistent ly with mild pain relief. offered switching to tylenol arthritis for pain [id number] Joselito wells MD [facility] [address] [place] [address] 07/18/2021 14:11:48 07/21/2021 08:33:12 [id number] Joselito wells MD [facility] [address] [place] [address] 12/01/2021 10:59:16 12/02/2021 09:29:33 Type 2 diabetes mellitus 71103404 E11.9 12/01/21:a1 c 6.2Last A1C: 6.8Fasting BG range: does not checkCurre nt Therapy: metformin 500Statin: simvastati n 40ACE/ARB: lisinopril 20Foot Exam: normalMicr oalbumin: NEXT VISITPneum ovax 23: encouraged to get high dose pneumonia and flu shot at pharmacyf/ u in 3 moprinted off T2DM patient education from [facility] Pt was counseled on low carbohydra te diet to better manage diabetes. We went discussed pt's diet at length and I made specific dietary recommenda tions. I also encouraged regular exercise of 30-60 minutes most days of the week. Pt was encouraged to get yearly diabetic eye exams as well. 06/11/21:hg b a1c 6.8start metformin 500 Depression screening 171 760978 Z13.31 PHQ 2 Erectile dysfunction 860 024022 F52.21 requesting generic cialisdiff iculty maintainin g and getting an erectiontr ial low dose PRNadvised of ADR with tamsulosin [id number] Joselito wells MD [facility] [address] [place] [address] 03/04/2022 10:41:54 03/04/2022 14:21:31 Type 2 diabetes mellitus 33373010 E11.9 03/04/22:a 1c today 5.9Last A1C: 6.2Fasting BG range: does not checkCurre nt Therapy: metformin 500Statin: simvastati n 40ACE/ARB: lisinopril 20Foot Exam: normal, completed 12/01/21Mic roalbumin: pending todayPneum ovax 23: will come back for nurse visit a1c pre diabetic range- cut metformin in halff/u in 3 mo for a1c and due for yearly labs 12/01/21:a1 c 6.2Last A1C: 6.8Fasting BG range: does not checkCurre nt Therapy: metformin 500Statin: simvastati n 40ACE/ARB: lisinopril 20Foot Exam: normalMicr oalbumin: NEXT VISITPneum ovax 23: encouraged to get high dose pneumonia and flu shot at pharmacyf/ u in 3 moprinted off T2DM patient education from [facility] Pt was counseled on low carbohydra te diet to better manage diabetes. We went discussed pt's diet at length and I made specific dietary recommenda tions. I also encouraged regular exercise of 30-60 minutes most days of the week. Pt was encouraged to get yearly diabetic eye exams as well. 06/11/21:hg b a1c 6.8start metformin 500 Depression screening 171 611880 Z13.31 PHQ 1 Screening for malignant neoplasm of colon 496368186 Z12.11 colonoscop y 2020 in [place], [place] Overweight 965536006 E66 .3 discussed increasing exercise and healthier food options, high protein, low fat diet Essential hypertension 00569222 I10 03/04/22:B P 150/80 x2his mom fell at snf this morning and pt is agitatedto ok lisinopril at 7 AMadvised to check BP at home, goal BP <130/80, take BP this afternoon and tomorrow morning, call with numbers 06/02/21:BP elevated today 142/912, 150/82took lisinopril this AMordered BP cuffrepeat BP at nurse visit [id number] Joselito wells MD [facility] [address] [place] [address] 05/27/2022 09:25:27 05/27/2022 09:58:38 Type 2 diabetes mellitus 32618384 E11.9 05/27/22:pr evnar 20 given todayre- irving a1cpt still taking 250 mg metforminr outine labs 03/04/22:a 1c today 5.9Last A1C: 6.2Fasting BG range: does not checkCurre nt Therapy: metformin 500Statin: simvastati n 40ACE/ARB: lisinopril 20Foot Exam: normal, completed 12/01/21Mic roalbumin: pending todayPneum ovax 23: will come back for nurse visit a1c pre diabetic range- cut metformin in halff/u in 3 mo for a1c and due for yearly labs 12/01/21:a1 c 6.2Last A1C: 6.8Fasting BG range: does not checkCurre nt Therapy: metformin 500Statin: simvastati n 40ACE/ARB: lisinopril 20Foot Exam: normalMicr oalbumin: NEXT VISITPneum ovax 23: encouraged to get high dose pneumonia and flu shot at pharmacyf/ u in 3 moprinted off T2DM patient education from [facility] Pt was counseled on low carbohydra te diet to better manage diabetes. We went discussed pt's diet at length and I made specific dietary recommenda tions. I also encouraged regular exercise of 30-60 minutes most days of the week. Pt was encouraged to get yearly diabetic eye exams as well. 06/11/21:hg b a1c 6.8start metformin 500 Hypothyroidism 93710476 E03.9 05/27/22:re -check today 07/2021:TSH 6.1, taking levo 50will increase to levo 75re-check TSH in 4-6 wks Hyperlipidemia 28912170 E78.5 on simvastati nre-check today Essential hypertension 61547326 I10 05/27/22:BP 118/70, 132/74c/w lisinopril 20 03/04/22:B P 150/80 x2his mom fell at snf this morning and pt is agitatedto ok lisinopril at 7 AMadvised to check BP at home, goal BP <130/80, take BP this afternoon and tomorrow morning, call with numbers 06/02/21:BP elevated today 142/912, 150/82took lisinopril this AMordered BP cuffrepeat BP at nurse visit Depression screening 171 812314 Z13.31 PHQ 0 Retention of urine 70862 4002 R33.9 05/27/22:SE of dizziness and weak with flomaxtria l 1/2 dose of sildenafil for retention of urinef/u if no improvemen t 06/02/21:c/ o urinary retention and dribbling at the end of streamyea rstrial flomax [id number] LESLIE FORBES [facility] [address] [place] [address] 12/08/2022 09:11:56 12/08/2022 09:58:33 Essential hypertension 70048573 I10 12/08/22:BP 126/74 05/27/22:BP 118/70, 132/74c/w lisinopril 20 03/04/22:B P 150/80 x2his mom fell at snf this morning and pt is agitatedto ok lisinopril at 7 AMadvised to check BP at home, goal BP <130/80, take BP this afternoon and tomorrow morning, call with numbers 06/02/21:BP elevated today 142/912, 150/82took lisinopril this AMordered BP cuffrepeat BP at nurse visit Hypothyroidism 03022493 E03.9 12/08/22:re fill 05/27/22:re -check today 07/2021:TSH 6.1, taking levo 50will increase to levo 75re-check TSH in 4-6 wks Depression screening 171 623241 Z13.31 PHQ 0 Prediabetes 814334373 R7 3.03 12/08/22:a1 c today 6.1went to [facility] for eye exam 3 wks ago, will request recordsc/w metformin 250f/u in 6 mo for a1c, prediabete s since 11/202105/27/22:pr evnar 20 given todayre-ch irving a1cpt still taking 250 mg metforminr outine labs 03/04/22:a 1c today 5.9Last A1C: 6.2Fasting BG range: does not checkCurre nt Therapy: metformin 500Statin: simvastati n 40ACE/ARB: lisinopril 20Foot Exam: normal, completed 12/01/21Mic roalbumin: pending todayPneum ovax 23: will come back for nurse [id number] pre diabetic range- cut metformin in halff/u in 3 mo for a1c and due for yearly labs 12/01/21:a1 c 6.2Last A1C: 6.8Fasting BG range: does not checkCurre nt Therapy: metformin 500Statin: simvastati n 40ACE/ARB: lisinopril 20Foot Exam: normalMicr oalbumin: NEXT VISITPneum ovax 23: encouraged to get high dose pneumonia and flu shot at pharmacyf/ u in 3 moprinted off [facility] on low carbohydra te diet to better manage diabetes. We went discussed pt's diet at length and I made specific dietary recommenda tions. I also encouraged regular exercise of 30-60 minutes most days of the week. Pt was encouraged to get yearly diabetic eye exams as well. 06/11/21:hg b a1c 6.8start metformin 500 Administra tion of influenza vaccine 66092939 Z23 Benign pro static hyperplasia without outflow obstruction 987138743 N40.0 12/08/22:no longer taking flomax, relief with tadalafil 05/27/22:SE of dizziness and weak with flomaxtria l 1/2 dose of sildenafil for retention of urinef/u if no improvemen t 06/02/21:c/ o urinary retention and dribbling at the end of streamyea rstrial flomax [id number] LESLIE FORBES [facility] [address] [place] [address] 12/16/2022 12:31:04 12/16/2022 13:40:00 Pain in left lower limb 164339620 M79.605 x5 daysno trauma or injuryunkn own causestabb ing pain to L anterior leg (inferior to patella) with certain movementst aking tylenol QID with improvemen tPEx- nl, FROM L knee joint, non-TTP w/o erythema/e demacould be referred pain from arthritis to low back and L hipc/w tylenolavo id activity/m ovements that worsen sxf/u in 1 wk if sx do not improve [id number] Joselito wells MD [facility] [address] [place] [address] 06/11/2023 08:41:53 06/11/2023 09:46:29 Depression screening 603298081 Z13.31 PHQ 0 Hypothyroidism 78228066 E03.9 06/11/23: re-check today 12/08/22:re fill 05/27/22:re -check today 07/2021:TSH 6.1, taking levo 50will increase to levo 75re-check TSH in 4-6 wks Hyperlipidemia 06928109 E78.5 on simvastati nre-check today Essential hypertension 70648028 I10 06/11/23: BP 127/76 12/08/22:BP 126/74 05/27/22:BP 118/70, 132/74c/w lisinopril 20 03/04/22:B P 150/80 x2his mom fell at snf this morning and pt is agitatedto ok lisinopril at 7 AMadvised to check BP at home, goal BP <130/80, take BP this afternoon and tomorrow morning, call with numbers 06/02/21:BP elevated today 142/912, 150/82took lisinopril this AMordered BP cuffrepeat BP at nurse visit Benign pro static hyperplasia without outflow obstruction 514977167 N40.0 06/11/23: 95% of the time improvemen t with tadalafilr equesting to increase dose to 20 mg and will cut in half, cheaper prescripti on than 5 mg 12/08/22:no longer taking flomax, relief with tadalafil 05/27/22:SE of dizziness and weak with flomaxtria l 1/2 dose of sildenafil for retention of urinef/u if no improvemen t 06/02/21:c/ o urinary retention and dribbling at the end of streamyea rstrial flomax Prediabetes 010474830 R7 3.03 06/11/23: re-check todayrouti ne labs 12/08/22:a1 c today 6.1went to [facility] for eye exam 3 wks ago, will request recordsc/w metformin 250f/u in 6 mo for a1c, prediabete s since 11/202105/27/22:pr mason 20 given todayre- irving a1cpt still taking 250 mg metforminr outine labs 03/04/22:a 1c today 5.9Last A1C: 6.2Fasting BG range: does not checkCurre nt Therapy: metformin 500Statin: simvastati n 40ACE/ARB: lisinopril 20Foot Exam: normal, completed 12/01/21Mic roalbumin: pending todayPneum ovax 23: will come back for nurse [id number] pre diabetic range- cut metformin in halff/u in 3 mo for a1c and due for yearly labs 12/01/21:a1 c 6.2Last A1C: 6.8Fasting BG range: does not checkCurre nt Therapy: metformin 500Statin: simvastati n 40ACE/ARB: lisinopril 20Foot Exam: normalMicr oalbumin: NEXT VISITPneum ovax 23: encouraged to get high dose pneumonia and flu shot at pharmacyf/ u in 3 moprinted off [facility] on low carbohydra te diet to better manage diabetes. We went discussed pt's diet at length and I made specific dietary recommenda tions. I also encouraged regular exercise of 30-60 minutes most days of the week. Pt was encouraged to get yearly diabetic eye exams as well. 06/11/21:hg b a1c 6.8start metformin 500 Screening for malignant neoplasm of colon 380375991 Z12.11 colonoscop y 2020 in [facility] for repeat Overweight 238306573 E66 .3 discussed increasing exercise and healthier food options, high protein, low fat diet Exudative age-related macular degeneration 616419008 H35.3290 wet age related macular degenerati onconsult note from 05/13/23- no evidence of diabetic retinopath yfollows with ophthalmol ogy Adult heal th examination 408324949 Z00.00 Health Risk Assessment collected and reviewed [id number] Joselito wells MD [facility] [address] [place] [address] 08/17/2023 12:34:08 08/17/2023 12:51:37 Dizziness 940726472 R42 x3 wkswoozy and light headedwors e in the morning and only occurs with position changes, laying on back to standingla sts a couple seconds to minutesadm its to poor fluid intakedoes not check BP at homePEx- nlBP normotensi ve in office, start checking BP at homeencour aged to drink 6-8 glasses of water/day and 1 gatorade/p owerade dailyrec'd to move slowly with position changesf/u in 2 wks if sx do not improve [id number] Marty Harvey MD [facility] [address] [place] [address] 05/10/2024 11:54:56 05/10/2024 12:47:20 Benign prostatic hyperplasia without outflow obstruction 093903310 N40.0 05/10/24: improvemen t with 10 mg, cuts 20 mg in half 06/11/23: 95% of the time improvemen t with tadalafilr equesting to increase dose to 20 mg and will cut in half, cheaper prescripti on than 5 mg 12/08/22:no longer taking flomax, relief with tadalafil 05/27/22:SE of dizziness and weak with flomaxtria l 1/2 dose of sildenafil for retention of urinef/u if no improvemen t 06/02/21:c/ o urinary retention and dribbling at the end of streamyea rstrial flomax Essential hypertension 25632048 I10 05/10/24: BP 150/80, 160/80on lisinopril 20no symptomsad vised to check BP at home, goal BP <130/80, f/u with BP log 06/11/23: BP 127/76 12/08/22:BP 126/74 05/27/22:BP 118/70, 132/74c/w lisinopril 20 03/04/22:B P 150/80 x2his mom fell at snf this morning and pt is agitatedto ok lisinopril at 7 AMadvised to check BP at home, goal BP <130/80, take BP this afternoon and tomorrow morning, call with numbers 06/02/21:BP elevated today 142/912, 150/82took lisinopril this AMordered BP cuffrepeat BP at nurse visit Hyperlipidemia [id number] E78.5 advised pt about no health benefits of statins after age 75does not want to stop cholestero l medication re-check lipid today Hypothyroidism [id number] E03.9 05/10/24: re-check today 06/11/23: re-check today 12/08/22:re fill 05/27/22:re -check today 07/2021:TSH 6.1, taking levo 50will increase to levo 75re-check TSH in 4-6 wks Prediabetes [id number] R7 3.03 05/10/24: a1c 6.2c/w metformin 500 06/11/23: re-check todayrouti ne labs 12/08/22:a1 c today 6.1went to [facility] for eye exam 3 wks ago, will request recordsc/w metformin 250f/u in 6 mo for a1c, prediabete s since 11/202105/27/22:pr mason 20 given todayre-ch irving a1cpt still taking 250 mg metforminr outine labs 03/04/22:a 1c today 5.9Last A1C: 6.2Fasting BG range: does not checkCurre nt Therapy: metformin 500Statin: simvastati n 40ACE/ARB: lisinopril 20Foot Exam: normal, completed 12/01/21Mic roalbumin: pending todayPneum ovax 23: will come back for nurse [id number] pre diabetic range- cut metformin in halff/u in 3 mo for a1c and due for yearly labs 12/01/21:a1 c 6.2Last A1C: 6.8Fasting BG range: does not checkCurre nt Therapy: metformin 500Statin: simvastati n 40ACE/ARB: lisinopril 20Foot Exam: normalMicr oalbumin: NEXT VISITPneum ovax 23: encouraged to get high dose pneumonia and flu shot at pharmacyf/ u in 3 moprinted off T2DM patient education from [facility] was counseled on low carbohydra te diet to better manage diabetes. We went discussed pt's diet at length and I made specific dietary recommenda tions. I also encouraged regular exercise of 30-60 minutes most days of the week. Pt was encouraged to get yearly diabetic eye exams as well. 06/11/21:hg b a1c 6.8start metformin 500 Overweight [id number] E66 .3 discussed increasing exercise and healthier food options, high protein, low fat dietroutin e labs Depression screening 171 [id number] Z13.31 PHQ 0 Health Concerns Section Related Observation LastModified by Organization Detai ls LastModified Time None Recorded Concern Status LastModified by Organization Details LastModified Time None Recorded Advance Directives Directive N: Payers Insurance Date Sequence Insurance Name Policy Number Policy Adam Covered Member ID Adam Member ID Guarantor Name 08/28/2024 1 [facility] (MEDICARE REPLACEMENT/A DVANTAGE - HMO) [id number] Nghia Yoo [id number] Nghia Yoo Notes Date Note Type Note Provider Name and Address Organization Details Recorded Time 12/08/2022 text/html Pt presents for 6 mo f/u. No concerns or complaints today. He received new eye glasses, hearing aides, and dental implants. Denies fever, chills, chest pain, SOB, n/v/d, abd pain, dizziness, weakness, or headaches. LESLIE FORBES Attn: [address] [place], [address], [place] 12/08/2022 11:24:55 12/16/2022 text/html Pt presents with Left leg pain x5 days. Denies trauma or injury. Describes as knife stabbing pain to upper L smith/below his knee. Worse with bending forward from sitting position and raising Left leg w/o bending knee. Taking tylenol every 6 hours. Moderate improvement in symptoms today. LESLIE FORBES Attn: [address] [facility], [place], [address], [facility] 12/17/2022 12:13:22 06/11/2023 text/html Pt presents for annual exam and routine labs. He has been following with ophthalmology for fluid behind my eyes. Reports that for the past 6 months he has had difficulty parking straight in parking spaces. States that he is very particular about things being out of alignment. Endorses that could be due to his eye issues. Denies memory problems or extremity weakness. Pt bought new car 1.5 yrs ago. Denies fever, chills, chest pain, SOB, n/v/d, abd pain, dizziness, weakness, or headaches. LESLIE FORBES Attn: [address] [facility] [facility], [place], [address], [facility] 06/11/2023 09:27:46 08/17/2023 text/html Pt presents with dizziness x3 wks. Reports that dizziness occurs with position changes, sitting to standing after laying in bed, laying on his back, working underneath a car, and stands up quickly. Dizziness is worse in the morning, describes as woozy and light headed. States that dizziness occurs every day, can lasts a couple seconds to minutes. Endorses that he had 1 episode that lasted a few hours. Denies syncope. Admits to poor fluid intake, drinks 2-3 glasses of water/day. Pt does not check his BP at home. LESLIE FORBES Attn: Accounting[address] [facility], [place], [address], [facility] 08/18/2023 14:04:18 05/10/2024 text/html Pt presents for med refills. No concerns or complaints today. States that dizziness subsided when he increased his fluid intake. Denies fever, chills, chest pain, SOB, n/v/d, abd pain, dizziness, weakness, or headaches. LESLIE FORBES Attn: [address] [facility], [place], [address], [facility] 05/10/2024 16:27:52
[2024-08-29 08:33] VITALS: PULSE 61; RESP 18; TEMP 36.4; O2SAT 100
[2024-08-29 08:47] VITALS: BP 133/73; PULSE 56; RESP 16; TEMP 36.3; O2SAT 98
--- NOTE | 2024-08-29 10:18 | ED.EXTPRO ---
HPI - Extremity Problem General Chief complaint: Extremity Problem,Nontraumatic Stated complaint: right knee pain Time Seen by Provider: 08/29/24 09:13 Source: patient Mode of arrival: ambulatory Limitations: no limitations History of Present Illness HPI Narrative: Patient is a 78-year-old male who presents the ED with report of right knee pain. Patient reports he has had intermittent pain since last Wednesday. Notes that he walks his dog several times a day and may have twisted his knee, but denies any distinct injury or fall. Pain is worst in his medial knee. Reports intermittent swelling. Has been taking Tylenol occasionally without much relief. Denies numbness. Denies swelling of lower leg. Related Data Allergies Allergy/AdvReac Type Severity Reaction Status Date / Time No Known Allergies Allergy Verified 08/29/24 08:37 Review of Systems Review of Systems: All systems reviewed & are unremarkable except as noted in HPI. All systems reviewed & are unremarkable except as noted in HPI and below Exam Narrative: GENERAL: Well appearing, well-nourished, non-toxic, in no acute distress. HEAD: Normocephalic, atraumatic. RESPIRATORY: Airway patent, respirations nonlabored. CARDIOVASCULAR: Regular rate and rhythm. Pedal pulses intact and easily palpable. MUSCULOSKELETAL: Moves all extremities. Minimal swelling throughout right anterior knee. Mild tenderness throughout right knee medial joint space. No warmth or erythema. No calf tenderness. SKIN: Warm, dry, normal color. NEURO: A&O X3. Speech clear. Steady gait. No focal deficits. PSYCHIATRIC: Appropriate mood and affect. Normal interaction. Course Vital Signs Vital signs: Vital Signs Temperature 97.6 F 08/29/24 08:33 Pulse Rate 61 08/29/24 08:33 Respiratory Rate 18 08/29/24 08:33 Pulse Oximetry 100 08/29/24 08:33 Oxygen Delivery Room Air 08/29/24 08:33 Temperature 97.6 F 08/29/24 08:33 Pulse Rate 61 08/29/24 08:33 Respiratory Rate 18 08/29/24 08:33 Pulse Oximetry 100 08/29/24 08:33 Oxygen Delivery Room Air 08/29/24 08:33 MDM - Extremity (Nontraumatic) MDM Narrative Medical decision making narrative: Patient?s injury is consistent with musculoskeletal etiology. No signs of neurologic or vascular compromise on physical examination. Compartments are soft without signs of compartment syndrome. XR of right knee without osseous abnormality. Showing minimal fluid in suprapatellar bursa. Mild osteoarthritis changes. Pain is consistent with knee sprain. Discussed possibility of ligamentous versus meniscal issue. Patient placed in Bry bandage. Given pain control in the ED. Will prescribe short course of tramadol for home use. Will refer to orthopedics for further evaluation. Patient is felt to be stable for discharge home and further outpatient management and treatment. Given return precautions. He agrees with plan. Discharged in stable condition. Medical Records Attestation: I reviewed the patient's medical records. Imaging Data Attestation: I personally reviewed and interpreted this imaging study as follows: Radiologist's impression: ITS Impressions Knee X-Ray 08/29/24 09:44 IMPRESSION: No acute osseous abnormality right knee. Mild osteoarthritic changes Discharge Plan Discharge Clinical Impression: Strain of right knee, Suprapatellar bursitis of right knee Patient Disposition: Home Condition: Stable Instructions: Antibiotic Form, Knee Sprain (ED), P.R.I.C.E. Treatment (ED) Additional Instructions: Continue Tylenol and Ibuprofen as needed for pain. Utilize tramadol as needed for more severe pain. Utilize BRY bandage for compression/support. Recommend frequent icing to knee, elevation of right leg. Follow-up with your primary care doctor and orthopedics for further evaluation. Return to the ED if you experience worsening or severe pain, severe swelling, redness/warmth of knee, recurrent fall or injury, or any other symptoms of concern. Patient Language: Israeli Prescriptions: New tramadol 50 mg tablet 50 mg PO Q6H PRN (Reason: pain) Qty: 5 0RF Follow-up/Referrals: Chandra,LESLIE Galindo [Primary Care Provider] - Alcides Lewis MD [Physician] - (ORTHOPEDICS) Time of Disposition: 10:20
[2024-08-29 10:24] VITALS: BP 134/78; PULSE 57; RESP 16; TEMP 36.4; O2SAT 97
[2024-08-29] MEDS: ACETAMINOPHEN 500 MG TABLET 1000 MG PO (10:29)
[2024-08-29] MEDS: KETOROLAC 30 MG/ML VIAL (*BKC) IM (10:29)
[2024-08-29 10:49] VITALS: BP 135/77; PULSE 53; RESP 16; TEMP 36.6; O2SAT 98
== END 2024-08-29 10:52 | disposition home or self-care (01) ==
PROVIDERS: Emergency Provider Physician Assistant; PCP Physician Assistant
DX: S86.911A Strain of unspecified muscle(s) and tendon(s) at lower leg level, right leg, initial encounter (principal); M70.51 Other bursitis of knee, right knee; X50.9XXA Other and unspecified overexertion or strenuous movements or postures, initial encounter; Y93.K1 Activity, walking an animal
CPT/HCPCS: 73564; 96372; 99283; A9270; J1885

== ENCOUNTER 2025-02-23 06:37 | Outpatient (CLI) | payer MEDICARE, SELFPAY ==
--- NOTE | ~2025-02-23 | XR_ITS ---
EXAMINATION: XR shoulder RT min 2V, 02/23/2025 7:00 MANAGER ANIMATION HISTORY: M25.519 - Pain in unspecified shoulder COMPARISON: No comparisons available. Findings: No acute fracture or malalignment. Moderate degenerative changes Soft tissues unremarkable. Impression: No acute fracture or malalignment. Reviewed, dictated and finalized at location P. GER ANIMATION Impression: No acute fracture or malalignment.
[2025-02-23 07:26] LABS: Hematocrit 42.0 % (42.0-52.0); Hemoglobin 14.2 g/dL (14.0-18.0); Immature Granulocyte Percent A 0.2 % (0-0.5); Lymphocytes Absolute Auto 1.71 K/mm3 (0.9-3.2); Mean Corpuscular HGB Conc 33.8 g/dl (32-36); Mean Corpuscular Hemoglobin 31.1 pg (26-34); Mean Corpuscular Volume 92.1 fl (80-100); Nucleated Red Blood Cells Absolute Auto 0.000 K/mm3 (0.0-0.012); Nucleated Red Blood Cells Perc 0.0 % (0.0-0.2); Platelet Count Result 203 k/mm3 (150-375); Red Blood Count 4.56 M/mm3 (4.6-6.20); White Blood Count 6.4 K/mm3 (4.5-10.0)
[2025-02-23 08:00] LABS: Alanine Aminotransferase 30 U/L (6-50); Albumin Level 4.3 g/dL (3.5-5.1); Alkaline Phosphatase 69 U/L (38-126); Anion Gap 6 mmol/L (4-12); Aspartate Amino Transferase 27 U/L (17-59); Bilirubin,Total 0.8 mg/dL (0.2-1.3); Blood Urea Nitrogen 15 mg/dL (9-20); Calcium 9.4 mg/dL (8.4-10.2); Carbon Dioxide 26 mmol/L (22-30); Chloride 103 mmol/L (98-107); Cholesterol 279 mg/dL (0-200); Estimated Glomerular Filt Rate > 60; Glucose 105 mg/dL (65-110); HDL Direct 35 mg/dL; Potassium 4.8 mmol/L (3.4-5.0); Sodium 135 mmol/L (137-145); Total Protein 7.7 g/dL (6.3-8.2); Triglycerides 402 mg/dL (<150)
[2025-02-23 08:08] LABS: Free T4 Free Thyroxine 1.17 ng/dL (0.78-2.19)
[2025-02-23 08:35] LABS: Thyroid Stimulating Hormone 5.860 uIU/mL (0.465-4.680)
[2025-02-23 14:51] LABS: Hemoglobin A1C 6.3 % (<5.7)
== END 2025-02-23 06:38 | disposition home or self-care (01) ==
PROVIDERS: PCP Internal Medicine; Visit Provider Internal Medicine
DX: M25.511 Pain in right shoulder (principal); E78.5 Hyperlipidemia, unspecified; I10 Essential (primary) hypertension; E03.9 Hypothyroidism, unspecified; R73.03 Prediabetes
CPT/HCPCS: 36415; 73030; 80053; 80061; 83036; 84439; 84443; 85025